=== PATIENT | female | born 1985 | race Caucasian/White ===

== ENCOUNTER 2016-03-23 01:08 | Emergency (ER) | payer OTHER ==
--- NOTE | 2016-03-23 01:13 | ED ---
General Adult HPI <Sanchez Maldonado - Last Filed: 03/23/16 09:49> - General Source: RN notes reviewed, old records reviewed <Sanchez Weaver - Last Filed: 03/24/16 04:03> - General Stated complaint: alcohol Time Seen by Provider: 03/23/16 01:11 - History of Present Illness Initial comments: This is a 22-year-old female to the ER for evaluation. Patient brought in for ER by EMS, patient's unreliable historian secondary to alcohol intoxication, in speaking with patient's fiance, patient's breathing brought in for evaluation of suicidal thoughts or homicidal thoughts. Patient is petition (Sanchez Weaver) - Related Data Home Medications Medication Instructions Recorded Confirmed ALPRAZolam [Xanax] 0.5 mg PO TID PRN 03/23/16 03/23/16 Ciprofloxacin HCl [Cipro] 500 mg PO Q12HR 03/23/16 03/23/16 Ergocalciferol [Vitamin D2] 50,000 unit PO QMONTH 03/23/16 03/23/16 Norgestimate-Ethinyl Estradiol 1 tab PO DAILY 03/23/16 03/23/16 [Sprintec 28 Day Tablet] Ofloxacin 0.3% Otic Soln [Floxin 6 drops LEFT EAR BID 03/23/16 03/23/16 0.3% Otic Soln] Allergies Allergy/AdvReac Type Severity Reaction Status Date / Time amoxicillin [Amoxicillin] Allergy Swelling Verified 03/23/16 01:58 Penicillins Allergy Swelling Verified 03/23/16 01:58 Review of Systems ROS Other: All systems not noted in ROS Statement are negative. <Sanchez Maldonado - Last Filed: 03/23/16 09:49> ROS Other: All systems not noted in ROS Statement are negative. <Sanchez Weaver - Last Filed: 03/24/16 04:03> ROS Statement: Those systems with pertinent positive or pertinent negative responses have been documented in the HPI. Past Medical History Additional Past Medical History / Comment(s): GESTATIONAL DIABETIS, hx alcohol abuse and pancreatitis History of Any Multi-Drug Resistant Organisms: None Reported Past Surgical History: No Surgical Hx Reported Past Psychological History: Anxiety, Depression Additional Psychological History / Comment(s): states hx of anx/depression. no meds. discussed pp depression/edinburgh scale. Smoking Status: Never smoker Past Alcohol Use History: None Reported Additional Past Alcohol Use History / Comment(s): sober since feb 2013- past hx of etoh abuse. smokes 1/2 ppd at this time. smoking cessation info given Past Drug Use History: None Reported <Sanchez Weaver - Last Filed: 03/24/16 04:03> General Exam General appearance: alert, appears intoxicated, anxious Head exam: Present: atraumatic, normocephalic, normal inspection Eye exam: Present: normal appearance, PERRL, EOMI. Absent: scleral icterus, conjunctival injection, periorbital swelling ENT exam: Present: normal exam, mucous membranes moist Neck exam: Present: normal inspection. Absent: tenderness, meningismus, lymphadenopathy Respiratory exam: Present: normal lung sounds bilaterally. Absent: respiratory distress, wheezes, rales, rhonchi, stridor Cardiovascular Exam: Present: regular rate, normal rhythm, normal heart sounds. Absent: systolic murmur, diastolic murmur, rubs, gallop, clicks GI/Abdominal exam: Present: soft, normal bowel sounds. Absent: distended, tenderness, guarding, rebound, rigid Extremities exam: Present: normal inspection, full ROM, normal capillary refill. Absent: tenderness, pedal edema, joint swelling, calf tenderness Back exam: Present: normal inspection Neurological exam: Present: alert, oriented X3, CN II-XII intact Psychiatric exam: Present: normal affect, normal mood Skin exam: Present: warm, dry, intact, normal color. Absent: rash <Sanchez Weaver - Last Filed: 03/24/16 04:03> Medical Decision Making <Sanchez Maldonado - Last Filed: 03/23/16 09:49> <Sanchez Weaver - Last Filed: 03/24/16 04:03> - Medical Decision Making 30 female seen either by psychiatry, positive alcohol, without alcohol is not homicidal or suicidal can be discharged home (Sanchez Weaver) Disposition Time of Disposition: 08:17 <Sanchez Maldonado - Last Filed: 03/23/16 09:49> <Sanchez Weaver - Last Filed: 03/24/16 04:03> Clinical Impression: Alcoholic intoxication Disposition: HOME SELF-CARE Condition: Good Instructions: Alcohol Intoxication (ED) Referrals: Aren Schmid MD [Primary Care Provider] - 1-2 days
[2016-03-23 01:31] VITALS: RESP 18; TEMP 99.1
[2016-03-23] MEDS ORDERED: ACETAMINOPHEN TAB 500 MG TAB PO STA (08:13)
[2016-03-23] MEDS ORDERED: IBUPROFEN 600 MG TAB PO STA (08:13)
[2016-03-23] MEDS ORDERED: AMOXICILLIN 500 MG CAP PO STA (08:14)
[2016-03-23] MEDS ORDERED: AZITHROMYCIN 500 MG TAB PO STA (08:25)
[2016-03-23 10:54] VITALS: BP 115/58; PULSE 99
[2016-03-24 19:38] LABS: Comprehensive Drug Screen Ur SeeBelow; Creatinine, Random Urine 22 mg/dL
== END 2016-03-23 10:52 | disposition home or self-care (01) ==
LOC: EC 01:08
DX: F10.129 Alcohol abuse with intoxication, unspecified (principal); F41.9 Anxiety disorder, unspecified; Y90.7 Blood alcohol level of 200-239 mg/100 ml; Z88.0 Allergy status to penicillin; Z79.3 Long term (current) use of hormonal contraceptives; Z79.899 Other long term (current) drug therapy
CPT/HCPCS: 99284; 82075; 80307; G0483; 80377

== ENCOUNTER → 2020-03-25 | Outpatient (CLI) | payer OTHER ==
--- NOTE | 2020-03-25 15:17 | US ---
EXAMINATION TYPE: US thyroid st tissue head/neck DATE OF EXAM: 03/25/2020 COMPARISON: NONE CLINICAL HISTORY: Swelling/Neck Mass R22.1. GLAND SIZE: Right Lobe: 5.1 x 1.6 x 1.7 cm Overall Parenchyma: mildly heterogenous Left Lobe: 4.5 x 1.4 x 1.6 cm Overall Parenchyma: mildly heterogeneous Isthmus Thickness: 0.5 cm NODULES RIGHT: # of nodules measured on right: 0 LEFT: # of nodules measured on left: 0 ISTHMUS: # of nodules measured in the isthmus: 0 Bilateral neck scanned, no evidence of lymphadenopathy. IMPRESSION: Normal thyroid ultrasound.
[2020-03-25 16:23] LABS: T4, Free (Free Thyroxine) 1.11 ng/dL (0.78-2.19)
== END | disposition home or self-care (01) ==
LOC: RADUSWWP 13:57
PROVIDERS: ATTEND Internal Medicine
DX: R22.1 Localized swelling, mass and lump, neck (principal); Z88.0 Allergy status to penicillin; F31.9 Bipolar disorder, unspecified; E06.9 Thyroiditis, unspecified
CPT/HCPCS: 76536; 84439; 84443; 84481; 86376

== ENCOUNTER → 2021-11-05 | Outpatient (CLI) | payer OTHER ==
[2021-11-05 23:23] LABS: T4, Free (Free Thyroxine) 1.32 ng/dL (0.800-1.800)
== END | disposition home or self-care (01) ==
LOC: LABWHC1 14:52
PROVIDERS: ATTEND Nurse Practitioner Family
DX: E03.9 Hypothyroidism, unspecified (principal)
CPT/HCPCS: 36415; 84439; 84443; 84481

== ENCOUNTER 2022-03-04 17:22 | Emergency (ER) | payer OTHER ==
[2022-03-04 17:54] LABS: Glucose,Whole Blood 169 mg/dL (70-110)
[2022-03-04] MEDS ORDERED: SODIUM CHLORIDE 0.9% 1,000 ML IV STA (19:45)
--- NOTE | 2022-03-04 19:50 | ED ---
General Adult HPI - General Chief complaint: Upper Respiratory Infection Stated complaint: flu symptoms Time Seen by Provider: 03/04/22 19:38 Source: patient, RN notes reviewed Mode of arrival: ambulatory Limitations: no limitations - History of Present Illness Initial comments: This is a pleasant 36-year-old female with history of hypothyroidism and ge stational diabetes. Patient currently 23 weeks . Patient states that she has had, some shortness of breath, body aches and fever over the past 3 days. Patient tested positive for COVID-19 in triage. Denying any productive cough. Denies any chest pain. No vaginal bleeding or vaginal leakage. No abdominal pain. No pelvic pain. No headache, no fever or chills, no changes in vision or hearing, no sore throat or difficulty with speech, no neck pain, no chest pain or shortness of breath, no abdominal pain, no nausea or vomiting, no changes in urination or bowel movements, no numbness or tingling, no extremity pain, no skin rashes or lesions. Past medical, surgical, social, and family history reviewed. No history of blood clots or pulmonary embolism. Patient A0. - Related Data Home Medications Medication Instructions Recorded Confirmed ALPRAZolam [Xanax] 0.5 mg PO TID PRN 03/23/16 03/23/16 Ciprofloxacin HCl [Cipro] 500 mg PO Q12HR 03/23/16 03/23/16 Ergocalciferol [Vitamin D2] 50,000 unit PO QMONTH 03/23/16 03/23/16 Ofloxacin 0.3% Otic Soln [Floxin 6 drops LEFT EAR BID 03/23/16 03/23/16 0.3% Otic Soln] norgestimate-ethinyl estradioL 1 tab PO DAILY 03/23/16 03/23/16 [Sprintec 28 Day Tablet] Allergies Allergy/AdvReac Type Severity Reaction Status Date / Time amoxicillin [Amoxicillin] Allergy Swelling Verified 03/04/22 17:52 Penicillins Allergy Swelling Verified 03/04/22 17:52 Review of Systems ROS Statement: Those systems with pertinent positive or pertinent negative responses have been documented in the HPI. ROS Other: All systems not noted in ROS Statement are negative. Past Medical History Past Medical History: No Reported History Additional Past Medical History / Comment(s): GESTATIONAL DIABETIS, hx alcohol abuse and pancreatitis History of Any Multi-Drug Resistant Organisms: None Reported Past Surgical History: No Surgical Hx Reported Past Psychological History: Anxiety, Depression Smoking Status: Never smoker Past Alcohol Use History: None Reported Past Drug Use History: None Reported General Exam - General Exam Comments Initial Comments: Patient noted to be tachycardic. Appears to be mildly ill but not toxic. Adequate peripheral perfusion. No mottling. Limitations: no limitations General appearance: alert, in no apparent distress Head exam: Present: atraumatic, normocephalic, normal inspection Eye exam: Present: normal appearance, PERRL, EOMI. Absent: scleral icterus, conjunctival injection, periorbital swelling ENT exam: Present: normal exam, normal oropharynx, mucous membranes dry, mucous membranes moist, normal external ear exam Neck exam: Present: normal inspection, full ROM. Absent: tenderness, meningismus, lymphadenopathy Respiratory exam: Present: normal lung sounds bilaterally. Absent: respiratory distress, wheezes, rales, rhonchi, stridor Cardiovascular Exam: Present: normal rhythm, tachycardia, normal heart sounds. Absent: systolic murmur, diastolic murmur, rubs, gallop, clicks GI/Abdominal exam: Present: soft, normal bowel sounds. Absent: distended, tenderness, guarding, rebound, rigid Extremities exam: Present: normal inspection, full ROM, normal capillary refill. Absent: tenderness, pedal edema, joint swelling, calf tenderness Back exam: Present: normal inspection Neurological exam: Present: alert, oriented X3, CN II-XII intact Psychiatric exam: Present: normal affect, normal mood Skin exam: Present: warm, dry, intact, normal color. Absent: rash Course Vital Signs 03/04/22 03/04/22 03/04/22 17:47 19:43 21:57 Temperature 98.7 F Pulse Rate 131 H 116 H 123 H Respiratory 18 18 20 Rate Blood Pressure 109/68 O2 Sat by Pulse 98 100 99 Oximetry 03/04/22 22:31 Temperature 98.9 F Pulse Rate Respiratory Rate Blood Pressure O2 Sat by Pulse Oximetry - Reevaluation(s) Reevaluation #1: 03/04/22 20:47 Patient is d-dimer +1.51. Discussed risks versus benefits of computed tomography scan with the patient. Discussed possibility of pulmonary embolism. Patient consents to computed tomography scan through shared decision-making. Remainder of the laboratory work so far is essentially nondiagnostic with mild anemia, CO2 of 20, sodium 134, negative troponin. Reevaluation #2: 03/04/22 22:42 Medical record is reviewed Symptoms are improved here in the emergency department Patient is informed of results and questions answered Patient in no distress Computed tomography scan shows no evidence of pulmonary embolism. EKG Findings - EKG Comments: EKG Findings:: EKG independently interpreted by me at 2012 revealed sinus tachycardia with a rate of 119. Normal axis, no acute pathology, no ST elevation or depression. Normal intervals. Medical Decision Making - Medical Decision Making Differential diagnosis viral syndrome, patient already tested positive for COVID-19 in triage. Unlikely secondary pneumoniapatient has no adventitious lung sounds. Pulmonary embolism possible as the patient is and tested positive for COVID-19. Patient also tachycardic despite having no fever. Patient took 1000 mg of acetaminophen 3 hours prior to my evaluation. Gen. cardiopulmonary evaluation to include EKG, troponin, d-dimer. ordered the monoclonal antibody and heart tones. Computed tomography scan independently interpreted by me reveals no evidence of acute process. Specifically no evidence of pulmonary embolism. Reviewed radiology interpretation. All findings discussed with the patient. Treatment plan discussed. The monoclonal antibody was not available as of February 17. We'll have the patient treat conservatively for COVID-19. Quarantine measures discussed. Masking discussed. Patient can use Tylenol every 4-6 hours as directed on the [id number] bottle for symptomatically and fever control. Return of all parameters discussed in detail. Patient was told to return to the ER for any signs or symptoms worsen. Told to return immediately if any other problems arise. All questions answered. Treatment plan discussed. Patient in agreement Every effort has been made to ensure accuracy of this dictation. However, due to the limitations of electronic medical records and dictation devices, errors in charting still occur. The case was discussed in detail with ED attending physician. Presentation, findings, treatment plan discussed in detail. Adriániso Dr. Phillips - Lab Data Result diagrams: 03/04/22 20:01 03/04/22 20:01 Lab Results 03/04/22 03/04/22 03/04/22 Range/Units 17:52 17:54 20:01 WBC 8.5 (3.8-10.6) k/uL RBC 3.28 L (3.80-5.40) m/uL Hgb 11.0 L (11.4-16.0) gm/dL Hct 30.7 L (34.0-46.0) % MCV 93.6 (80.0-100.0) fL MCH 33.5 (25.0-35.0) pg MCHC 35.7 (31.0-37.0) g/dL RDW 12.4 (11.5-15.5) % Plt Count 286 (150-450) k/uL MPV 8.2 Neutrophils % 89 % Lymphocytes % 4 % Monocytes % 4 % Eosinophils % 1 % Basophils % 0 % Neutrophils # 7.6 (1.3-7.7) k/uL Lymphocytes # 0.4 L (1.0-4.8) k/uL Monocytes # 0.4 (0-1.0) k/uL Eosinophils # 0.1 (0-0.7) k/uL Basophils # 0.0 (0-0.2) k/uL D-Dimer (<0.60) mg/L FEU Sodium (137-145) mmol/L Potassium (3.5-5.1) mmol/L Chloride (98-107) mmol/L Carbon Dioxide (22-30) mmol/L Anion Gap mmol/L BUN (7-17) mg/dL Creatinine (0.52-1.04) mg/dL Est GFR (CKD-EPI)AfAm (>60 ml/min/1.73 sqM) Est GFR (CKD-EPI)NonAf (>60 ml/min/1.73 sqM) Glucose (74-99) mg/dL POC Glucose (mg/dL) 169 H (70-110) mg/dL POC Glu Cost Estimator ID Willing, Winifred Plasma Lactic Acid Sukhwinder (0.7-2.0) mmol/L Calcium (8.4-10.2) mg/dL Magnesium (1.6-2.3) mg/dL Total Bilirubin (0.2-1.3) mg/dL AST (14-36) U/L ALT (4-34) U/L Alkaline Phosphatase (38-126) U/L Troponin I (0.000-0.034) ng/mL Total Protein (6.3-8.2) g/dL Albumin (3.5-5.0) g/dL Influenza Type A (PCR) Not Detected (Not Detectd) Influenza Type B (PCR) Not Detected (Not Detectd) RSV (PCR) Not Detected (Not Detectd) SARS-CoV-2 (PCR) Detected A (Not Detectd) 03/04/22 03/04/22 03/04/22 Range/Units 20:01 20:01 20:01 WBC (3.8-10.6) k/uL RBC (3.80-5.40) m/uL Hgb (11.4-16.0) gm/dL Hct (34.0-46.0) % MCV (80.0-100.0) fL MCH (25.0-35.0) pg MCHC (31.0-37.0) g/dL RDW (11.5-15.5) % Plt Count (150-450) k/uL MPV Neutrophils % % Lymphocytes % % Monocytes % % Eosinophils % % Basophils % % Neutrophils # (1.3-7.7) k/uL Lymphocytes # (1.0-4.8) k/uL Monocytes # (0-1.0) k/uL Eosinophils # (0-0.7) k/uL Basophils # (0-0.2) k/uL D-Dimer 1.51 H (<0.60) mg/L FEU Sodium 134 L (137-145) mmol/L Potassium 4.0 (3.5-5.1) mmol/L Chloride 106 (98-107) mmol/L Carbon Dioxide 20 L (22-30) mmol/L Anion Gap 8 mmol/L BUN 5 L (7-17) mg/dL Creatinine 0.36 L (0.52-1.04) mg/dL Est GFR (CKD-EPI)AfAm >90 (>60 ml/min/1.73 sqM) Est GFR (CKD-EPI)NonAf >90 (>60 ml/min/1.73 sqM) Glucose 93 (74-99) mg/dL POC Glucose (mg/dL) (70-110) mg/dL POC Glu Cost Estimator ID Plasma Lactic Acid Sukhwinder 1.0 (0.7-2.0) mmol/L Calcium 9.6 (8.4-10.2) mg/dL Magnesium 1.8 (1.6-2.3) mg/dL Total Bilirubin 0.5 (0.2-1.3) mg/dL AST 33 (14-36) U/L ALT 21 (4-34) U/L Alkaline Phosphatase 73 (38-126) U/L Troponin I (0.000-0.034) ng/mL Total Protein 7.0 (6.3-8.2) g/dL Albumin 4.1 (3.5-5.0) g/dL Influenza Type A (PCR) (Not Detectd) Influenza Type B (PCR) (Not Detectd) RSV (PCR) (Not Detectd) SARS-CoV-2 (PCR) (Not Detectd) 03/04/22 Range/Units 20:01 WBC (3.8-10.6) k/uL RBC (3.80-5.40) m/uL Hgb (11.4-16.0) gm/dL Hct (34.0-46.0) % MCV (80.0-100.0) fL MCH (25.0-35.0) pg MCHC (31.0-37.0) g/dL RDW (11.5-15.5) % Plt Count (150-450) k/uL MPV Neutrophils % % Lymphocytes % % Monocytes % % Eosinophils % % Basophils % % Neutrophils # (1.3-7.7) k/uL Lymphocytes # (1.0-4.8) k/uL Monocytes # (0-1.0) k/uL Eosinophils # (0-0.7) k/uL Basophils # (0-0.2) k/uL D-Dimer (<0.60) mg/L FEU Sodium (137-145) mmol/L Potassium (3.5-5.1) mmol/L Chloride (98-107) mmol/L Carbon Dioxide (22-30) mmol/L Anion Gap mmol/L BUN (7-17) mg/dL Creatinine (0.52-1.04) mg/dL Est GFR (CKD-EPI)AfAm (>60 ml/min/1.73 sqM) Est GFR (CKD-EPI)NonAf (>60 ml/min/1.73 sqM) Glucose (74-99) mg/dL POC Glucose (mg/dL) (70-110) mg/dL POC Glu Cost Estimator ID Plasma Lactic Acid Sukhwinder (0.7-2.0) mmol/L Calcium (8.4-10.2) mg/dL Magnesium (1.6-2.3) mg/dL Total Bilirubin (0.2-1.3) mg/dL AST (14-36) U/L ALT (4-34) U/L Alkaline Phosphatase (38-126) U/L Troponin I <0.012 (0.000-0.034) ng/mL Total Protein (6.3-8.2) g/dL Albumin (3.5-5.0) g/dL Influenza Type A (PCR) (Not Detectd) Influenza Type B (PCR) (Not Detectd) RSV (PCR) (Not Detectd) SARS-CoV-2 (PCR) (Not Detectd) - Radiology Data Radiology results: report reviewed, image reviewed Disposition Clinical Impression: COVID-19 Disposition: HOME SELF-CARE Condition: Good Instructions (If sedation given, give patient instructions): COVID-19 (Coronavirus Disease 2019) (ED) Additional Instructions: SELF QUARANTINE DISCHARGE: As you are at risk for symptoms due to coronavirus, please stay home and stay away from others as much as possible. Please maintain social distance of 6 feet if possible. You should not return to work until at least 3 days (72 hours) have passed since recovery of symptoms. This defined as resolution of fever without the use of fever reducing medicines and improvement in respiratory symptoms (e.g,, cough, shortness of breath) Isolation can end at least 5 days after symptom onset and after fever ends for 24 hours (without the use of fever-reducing medication) and symptoms are improving, if these people can continue to properly wear a well-fitted mask around others for 5 more days after the 5-day isolation period. If you're still having symptoms at the end of 5 day period, isolate for an additional 5 days. More information about what to do if you are sick can be found on the CDC website at https://www.cdc.gov/coronavirus/2019-ncov/if-y ou-are-sick/wookm-tqbi-bgue.html Expect the symptoms to last for 7-14 days from onset. Use acetaminophen (Tylenol) as needed for discomfort. You can take a maximum of 1 gram every 6 hours for discomfort, with your total dose in 24 hours not exceeding 4 grams. Be sure to maintain hydration. Drink continuous water and/or items high in vitamin C, such as orange juice and/or lemonade. For a cough you may take Mucinex or Robitussin. Also consider the use of Vicks Vapor Rub or your chest when you sleep. Use a humidifier that is cleaned frequently, in the bedroom at night. For Nausea /Vomiting/Diarrhea associated with your Illness: o Small frequent sips of room temperature liquids. o Diet: [place] Foods - If you are still experiencing discomfort and/or nausea please slowly advancing your diet using the BRAT Diet = bananas, rice, apples/apple sauce, toast. o With diarrhea avoid any dairy for 48 hours after symptoms resolved. o Continue with activity as tolerated. If your symptoms do get worse and you believe that the upper respiratory infection has developed into something else, such as pneumonia or severe dehydration, please return to the emergency department or follow-up with your primary care. But expect to be symptomatic for the days as indicated above Follow-up with your regular physician as directed. Return to the ER immediately if any symptoms worsen, new symptoms arise, or any other problems develop. Also call your color finisher tomorrow just to notify them of your current COVID- 19 infection. Is patient prescribed a controlled substance at d/c from ED?: No Referrals: Aren Schmid MD [Primary Care Provider] - 03/11/22 Time of Disposition: 22:44
[2022-03-04 20:11] LABS: Basophils % (A) 0 %; Eosinophils # (A) 0.1 k/uL (0-0.7); Eosinophils % (A) 1 %; HCT 30.7 % (34.0-46.0); Lymphocytes # (A) 0.4 k/uL (1.0-4.8); Lymphocytes % (A) 4 %; MCH 33.5 pg (25.0-35.0); MCHC 35.7 g/dL (31.0-37.0); MCV 93.6 fL (80.0-100.0); Mean Platelet Volume 8.2; Monocytes # (A) 0.4 k/uL (0-1.0); Monocytes % (A) 4 %; Neutrophils # (A) 7.6 k/uL (1.3-7.7); Neutrophils % (A) 89 %; Platelet Count 286 k/uL (150-450); RBC 3.28 m/uL (3.80-5.40); RDW 12.4 % (11.5-15.5); WBC 8.5 k/uL (3.8-10.6)
[2022-03-04 20:26] LABS: ALT 21 U/L (4-34); African American GFR (CKD) >90 (>60 ml/min/1.73 sqM); Albumin 4.1 g/dL (3.5-5.0); Anion Gap 8 mmol/L; Blood Urea Nitrogen 5 mg/dL (7-17); Calcium 9.6 mg/dL (8.4-10.2); Carbon Dioxide 20 mmol/L (22-30); Chloride 106 mmol/L (98-107); Glucose 93 mg/dL (74-99); Non-African American GFR(CKD) >90 (>60 ml/min/1.73 sqM); Sodium 134 mmol/L (137-145); Total Bilirubin 0.5 mg/dL (0.2-1.3)
[2022-03-04 20:28] LABS: AST 33 U/L (14-36); Alkaline Phosphatase 73 U/L (38-126); Magnesium 1.8 mg/dL (1.6-2.3)
[2022-03-04] MEDS ORDERED: diphenhydrAMINE 50 MG/ML 1 ML VIAL IVP STA (20:44)
[2022-03-04] MEDS ORDERED: METOCLOPRAMIDE 5 MG/ML 2 ML VIAL IVP STA (20:44)
[2022-03-04] MEDS ORDERED: ACETAMINOPHEN TAB 500 MG TAB PO STA (22:16)
--- NOTE | 2022-03-04 22:22 | CT ---
EXAMINATION TYPE: CT chest angio for PE DATE OF EXAM: 03/04/2022 COMPARISON: None HISTORY: Tachycardia, dyspnea, Covid +. Pt [address] DLP: 289.7 mGycm Automated exposure control for dose reduction was used. CONTRAST: Performed with IV Contrast, patient injected with 100 mL of Isovue 370. Images obtained from the thoracic inlet to the diaphragm with the IV contrast. There are Three-D post processed images. There is no mediastinal adenopathy. Thoracic aorta is intact and no aneurysm or dissection. There are no hilar masses. Lungs are clear of consolidation. There is normal contrast opacification of the pulmonary arteries. No filling defect. There is no adrenal mass. Kidneys show normal size. Upper abdominal soft tissues are intact. The thoracic spine is intact. No compression fracture. Sternum is intact. IMPRESSION: Negative exam. No evidence of pulmonary embolism. No suspicious pulmonary mass.
[2022-03-04 22:31] VITALS: TEMP 98.9
[2022-03-04 22:58] VITALS: BP 93/57; PULSE 116; RESP 18
== END 2022-03-04 22:57 | disposition home or self-care (01) ==
LOC: EC 17:22
DX: O99.512 Diseases of the respiratory system complicating pregnancy, second trimester (principal); O99.342 Other mental disorders complicating pregnancy, second trimester; O99.712 Diseases of the skin and subcutaneous tissue complicating pregnancy, second trimester; U07.1 COVID-19; F41.9 Anxiety disorder, unspecified; F32.A Depression, unspecified; Z88.0 Allergy status to penicillin; Z3A.23 23 weeks gestation of pregnancy
CPT/HCPCS: 99284; 96374; 96375; 96361 ×2; 36415; 93005; 85379; 80053; 83605; 83735; 84484; 85025; 87636; 71275; J1200; J2765; Q9967

== ENCOUNTER → 2022-03-30 | Outpatient (CLI) | payer OTHER | END | disposition home or self-care (01) | LOC: LABWHC1 10:10 | PROVIDERS: ATTEND Obstetrics & Gynecology | DX: Z36.9 Encounter for antenatal screening, unspecified (principal) | CPT/HCPCS: 36415; 82950 ==

== ENCOUNTER 2022-04-08 18:53 | Outpatient (CLI) | payer OTHER ==
[2022-04-08 19:39] VITALS: BP 125/78; PULSE 96; RESP 17; TEMP 96.6
--- NOTE | 2022-04-20 12:17 | P.MSEPDOC ---
Presenting Problems - Arrival Data Date of Arrival on Unit: 04/08/22 Time of Arrival on Unit: 18:53 Mode of Transport: Wheelchair - Complaint OB-Reason for Admission/Chief Complaint: Decreased Movement Medical History - Information : 2 Para: 1 Term: 1 : 0 Abortions: Spontaneous or Elective: 0 Number of Living Children: 1 - Gestational Age Gestational Age by ALVARO (wks/days): 27 Weeks and 6 Days - History Complications: GDM Review of Systems - Review of Systems Constitutional: No problems Breast: No problems ENT: No problems Cardiovascular: No problems Respiratory: No problems Gastrointestinal: No problems Genitourinary: No problems Musculoskeletal: No problems Neurological: No problems Skin: No problems Vital Signs - Temperature Temperature: 96.6 F Temperature Source: Temporal Artery Scan - Pulse Right Brachial Pulse Rate: 96 Pulse Assessment Method: Pulse Oximetry - Respirations Respiratory Rate: 17 Oxygen Delivery Method: Room Air O2 Sat by Pulse Oximetry: 99 - Blood Pressure Right Arm Blood Pressure: 125/78 Blood Pressure Mean: 93 Blood Pressure Source: Automatic Cuff Medical Screen Scoring - Assessment - Baby A Baseline FHR: 130 Heart Rate - NICHD Category: Category I (Normal) NST: Reactive Physician Notification - Physician Notified Physician Notified Date: 04/08/22 Physician Notified Time: 19:15 Physician: Gabby Allen New Order Received: Yes - Notification Comment Comment: Dr. Allen given report on pt. Pt c/o of decreased movement. FHT strip reviewed by Dr. Lugo 1 FHTs noted. Pt denies contractions. VS WNL. movement noted per pt and per RN. Pt has apt with Dr. Gonzalez on 04/13. Orders received to d/c pt to home. Maternal Triage Index - Urgent/Priority 2 Urgent Priority 2: Yes Provider Notified: Gabby Allen Provider Notified Time: 19:15 Criteria Met for Priority 2: Pt c/o of decreased movement. Disposition - Disposition OB Disposition: Discharge to home Discharge Date: 04/08/22 Discharge Time: 19:22 I agree with the RN Medical Screening Exam: Yes Case reviewed; plan agreed upon as documented in EMR&OBIX.: Yes Diagnosis: decreased movemnet
== END 2022-04-08 19:22 | disposition home or self-care (01) ==
LOC: FBPOP 18:53
PROVIDERS: ATTEND Obstetrics & Gynecology
DX: O36.8131 Decreased fetal movements, third trimester, fetus 1 (principal); O24.419 Gestational diabetes mellitus in pregnancy, unspecified control; Z3A.27 27 weeks gestation of pregnancy; Z88.0 Allergy status to penicillin
CPT/HCPCS: 99213

== ENCOUNTER → 2022-06-22 | Outpatient (CLI) | payer OTHER ==
[2022-06-22 23:04] VITALS: BP 135/77; PULSE 95; RESP 16; TEMP 97.7
--- NOTE | 2022-07-08 12:26 | P.MSEPDOC ---
Presenting Problems - Arrival Data Date of Arrival on Unit: 06/22/22 Time of Arrival on Unit: 21:29 Mode of Transport: EMS - Complaint OB-Reason for Admission/Chief Complaint: Possible Onset of Labor Comment: patient arrives to triage states contractions are 5 minutes apart Medical History - Information : 2 Para: 1 Term: 1 : 0 Abortions: Spontaneous or Elective: 0 Number of Living Children: 1 - Gestational Age Gestational Age by ALVARO (wks/days): 38 Weeks and 4 Days - History Complications: GDM Review of Systems - Review of Systems Constitutional: No problems Breast: No problems ENT: No problems Cardiovascular: No problems Respiratory: No problems Gastrointestinal: No problems Genitourinary: No problems Musculoskeletal: No problems Neurological: No problems Skin: No problems Vital Signs - Temperature Temperature: 97.7 F Temperature Source: Oral - Pulse Right Brachial Pulse Rate: 95 Pulse Assessment Method: Automatic Cuff - Respirations Respiratory Rate: 16 Oxygen Delivery Method: Room Air O2 Sat by Pulse Oximetry: 97 - Blood Pressure Right Arm Blood Pressure: 135/77 Blood Pressure Mean: 96 Blood Pressure Source: Automatic Cuff Medical Screen Scoring - Cervical Exam Dilation (cm): 1 Membranes: Intact - Uterine Contractions Frequency From (mins): 3 Frequency To (mins): 15 Duration From (seconds): 40 Duration To (seconds): 60 Intensity: Moderate Resting: Soft to palpation - Assessment - Baby A Baseline FHR: 120 Heart Rate - NICHD Category: Category I (Normal) NST: Reactive Physician Notification - Physician Notified Physician Notified Date: 06/22/22 Physician Notified Time: 22:37 Physician: Daphnie Figueroa New Order Received: Yes (discahrge to home) - Notification Comment Comment: Dr. Figueroa called with report on patient that presents to [facility] via EMS. for contractions. Patient viviane 3-15minutes apart and states it feels like mild. cramping. Cervical exam 1/thick/high and unchanged after 1 hour. Category 1 heart tones. with reactive NST. Patient may be discharged home and follow up with Dr. Gonzalez Maternal Triage Index - Maternal Triage Index Presenting for scheduled procedure w/no complaint: No - Stat/Priority 1 Stat Priority 1: No - Urgent/Priority 2 Urgent Priority 2: No - Prompt/Priority 3 Prompt Priority 3: Yes Criteria Met for Priority 3: contractions Disposition - Disposition OB Disposition: Discharge to home Discharge Date: 06/22/22 Discharge Time: 22:41 I agree with the RN Medical Screening Exam: Yes Physician's MSE Comment: I have neither seen nor examined the patient. Case reviewed; plan agreed upon as documented in EMR&OBIX.: Yes Diagnosis: RELATED CONDITIONS, UNSPECIFIED, THIRD TRIMESTER
== END ==
LOC: FBPOP 21:29
PROVIDERS: ATTEND Obstetrics & Gynecology
DX: O26.893 Other specified pregnancy related conditions, third trimester (principal); Z3A.38 38 weeks gestation of pregnancy; O24.419 Gestational diabetes mellitus in pregnancy, unspecified control; Z88.0 Allergy status to penicillin
CPT/HCPCS: 59025; G0463; 99213

== ENCOUNTER 2022-06-30 06:29 | Inpatient (IN) | payer OTHER ==
[2022-06-30] MEDS ORDERED: TERBUTALINE 1 MG/ML VIAL SQ PRN (06:45)
[2022-06-30] MEDS ORDERED: METHYLERGONOVINE 0.2 MG/ML 1 ML AMP IM PRN (06:45)
[2022-06-30] MEDS ORDERED: CARBOPROST TROMETHAMINE 250 MCG/ML 1 ML AMP IM PRN (06:45)
[2022-06-30] MEDS ORDERED: LIDOCAINE 0.5% (PF) 5 MG/ML (50 ML SDV) SQ PRN (06:45)
[2022-06-30] MEDS ORDERED: OXYTOCIN 10 UNIT/ML 1 ML VIAL IM PRN (06:45)
[2022-06-30] MEDS ORDERED: miSOPROStoL 200 MCG TAB PO PRN (06:45)
[2022-06-30] MEDS ORDERED: TRANEXAMIC ACID IN NACL,ISO-OS 1,000 MG in EMPTY BAG 1 BAG IV PRN (06:45)
[2022-06-30 07:03] LABS: Glucose,Whole Blood 115 mg/dL (70-110)
[2022-06-30 07:13] LABS: Basophils # (A) 0.1 k/uL (0-0.2); Basophils % (A) 0 %; Eosinophils # (A) 0.2 k/uL (0-0.7); Eosinophils % (A) 2 %; HGB 10.7 gm/dL (11.4-16.0); Lymphocytes # (A) 2.5 k/uL (1.0-4.8); Lymphocytes % (A) 21 %; MCH 32.8 pg (25.0-35.0); MCHC 34.5 g/dL (31.0-37.0); MCV 95.1 fL (80.0-100.0); Mean Platelet Volume 7.7; Monocytes # (A) 0.6 k/uL (0-1.0); Monocytes % (A) 5 %; Neutrophils # (A) 8.2 k/uL (1.3-7.7); Neutrophils % (A) 68 %; Platelet Count 321 k/uL (150-450); RBC 3.26 m/uL (3.80-5.40)
[2022-06-30] MEDS: LACTATED RINGERS 1,000 ML IV SCH ×3 (08:00→12:23)
[2022-06-30] MEDS ORDERED: OXYTOCIN 30 UNITS/500 ML NS 30 UNIT in SALINE 1 500ML.BAG IV SCH ×2 (08:15→19:15)
--- NOTE | 2022-06-30 08:48 | P.HPOB ---
History of Present Illness H&P Date: 06/30/22 Chief Complaint: 39-5/7 weeks, induction The patient is a 36-year-old 2 para 101 admitted at 39-5/7 weeks as established by 12 week ultrasound. She is admitted for induction of labor. Her has been relatively uncomplicated though she is known to have a fetus with a right clubfoot. She additionally has gestational diabetes which has required insulin. Blood sugars have been relatively well maintained during the . testing has been reassuring throughout. On labor and delivery, all signs reassuring with a category 1 heart rate tracing. Group B strep status is negative Obstetrical history: 2 para 1001 with 1 term vaginal delivery without complications. Current statistics are listed in history present il lness. EDC of 07/02/2022 was established by a 12 week ultrasound. Laboratory workup demonstrates a blood type of B+ with a negative antibody screen. The remainder of the laboratory workup was within normal limits. Early Glucola was normal but was followed up with a significantly irregular second trimester Glucola making the diagnosis of gestational diabetes. Group B strep status is negative. Gynecologic history: Unremarkable with no history of any infections to include STDs. Review of Systems Review of systems is confined to history of present illness. Past Medical History Past Medical History: No Reported History Additional Past Medical History / Comment(s): GESTATIONAL DIABETIS, hx alcohol abuse and pancreatitis History of Any Multi-Drug Resistant Organisms: None Reported Past Surgical History: No Surgical Hx Reported Past Psychological History: Anxiety, Depression Additional Psychological History / Comment(s): states hx of anx/depression. no meds. discussed pp depression/edinburgh scale. Smoking Status: Former smoker Past Alcohol Use History: None Reported Additional Past Alcohol Use History / Comment(s): sober since feb 2013- past hx of etoh abuse. smokes 1/2 ppd at this time. smoking cessation info given Past Drug Use History: None Reported Medications and Allergies Home Medications Medication Instructions Recorded Confirmed Type Aspirin [Vazalore] 1 tab PO ONCE 04/08/22 06/30/22 History Levothyroxine Sodium 1 tab PO ONCE 04/08/22 06/30/22 History Vit No.179/Iron/Folic 1 tab PO ONCE 04/08/22 06/30/22 History [ Tablet] Insulin Aspart [NovoLOG Flexpen] 15 units SQ BID 06/22/22 06/30/22 History Insulin Glargine,Hum.rec.anlog 24 units SQ BID 06/22/22 06/30/22 History [Lantus Solostar Pen] Allergies Allergy/AdvReac Type Severity Reaction Status Date / Time amoxicillin [Amoxicillin] Allergy Swelling Verified 06/30/22 06:44 Penicillins Allergy Anaphylaxis Verified 06/30/22 06:44 Exam Vital Signs Temp Pulse Resp BP Pulse Ox 06/30/22 06:43 96.1 F L 109 H 16 113/80 100 Intake and Output 06/29/22 06/30/22 06/30/22 22:59 06:59 14:59 Other: Weight 80.286 kg In general, this is a well-developed, well-nourished white female in no acute distress. Her heart has a regular rhythm and rate without murmur. Her lungs clear to auscultation bilaterally in all segura. Her abdomen is gravid, nondistended, has normal active bowel sounds, soft, nontender, and without any palpable masses aside from the uterine fundus. Her extremities are without any cyanosis, clubbing, or edema and are nontender to palpation bilaterally. Digital cervical examination on straights her cervix to be a very tight 1 cm dilated, 50% effaced, the vertex in presentation at -2 station. Artificial rupture of membranes is unable to be carried out at this time. Results Result Diagrams: 06/30/22 06:40 Abnormal Lab Results - Last 24 Hours (Table) 06/30/22 06/30/22 Range/Units 06:40 07:01 WBC 12.0 H (3.8-10.6) k/uL RBC 3.26 L (3.80-5.40) m/uL Hgb 10.7 L (11.4-16.0) gm/dL Hct 31.0 L (34.0-46.0) % Neutrophils # 8.2 H (1.3-7.7) k/uL POC Glucose (mg/dL) 115 H (70-110) mg/dL Assessment and Plan (1) Term Current Visit: Yes Status: Acute Code(s): Z34.90 - ENCNTR FOR SUPRVSN OF NORMAL , UNSP, UNSP TRIMESTER SNOMED Code(s): 31162623 (2) Gestational diabetes Current Visit: No Status: Acute Code(s): O24.419 - GESTATIONAL DIABETES MELLITUS IN , UNSP CONTROL SNOMED Code(s): 49886976 Plan: The patient is admitted for induction of labor. Pitocin augmentation has been started. She will have artificial rupture of membranes carried out at the earliest possible convenience moment. She will have close maternal and surveillance and expectant management will be practiced. She is a good candidate for either IV, epidural, or nitrous analgesia, whichever she may choose.
[2022-06-30 09:26] LABS: Glucose,Whole Blood 125 mg/dL (70-110)
[2022-06-30 11:38] LABS: Glucose,Whole Blood 121 mg/dL (70-110)
[2022-06-30] MEDS ORDERED: SODIUM CHLORIDE 0.9% 100 ML BAG ONE (12:04)
[2022-06-30] MEDS ORDERED: ROPIVACAINE 5 MG/ML 20 ML AMPULE ONE (12:04)
[2022-06-30] MEDS ORDERED: fentaNYL (PF) 50 MCG/ML 5 ML AMP ONE (12:04)
[2022-06-30 13:25] LABS: Glucose,Whole Blood 99 mg/dL (70-110)
[2022-06-30 15:42] LABS: Glucose,Whole Blood 76 mg/dL (70-110)
[2022-06-30 17:22] LABS: Glucose,Whole Blood 73 mg/dL (70-110)
[2022-06-30] MEDS ORDERED: diphenhydrAMINE 25 MG CAP PO PRN (19:05)
[2022-06-30] MEDS ORDERED: HYDROCORTISONE 2.5% RECTAL CREAM 30 GM TUBE RECTAL PRN (19:05)
[2022-06-30] MEDS ORDERED: ACETAMINOPHEN TAB 325 MG TAB PO PRN (19:05)
[2022-06-30] MEDS ORDERED: ZOLPIDEM 5 MG TAB PO PRN (19:05)
[2022-06-30] MEDS ORDERED: LANOLIN CREAM 5 GM TUBE TOPICAL PRN (19:05)
[2022-06-30] MEDS ORDERED: diphenhydrAMINE 50 MG/ML 1 ML VIAL IVP PRN ×2 (19:05)
[2022-06-30] MEDS ORDERED: SIMETHICONE 80 MG CHEWABLE PO PRN (19:05)
[2022-06-30] MEDS ORDERED: HYDROcodone/APAP 5-325MG 1 EACH TAB PO PRN (19:05)
[2022-06-30] MEDS ORDERED: BENZOCAINE/MENTHOL SPRAY 1 GM/SPRAY AEROSOL TOPICAL PRN (19:05)
[2022-06-30] MEDS ORDERED: diphenhydrAMINE 50 MG CAP PO PRN (19:05)
--- NOTE | 2022-06-30 19:11 | P.PROBDLV ---
Vaginal Delivery Note - . Vaginal Delivery Note: The patient is a 36-year-old 2 para 1001 admitted at 39-5/7 weeks by good dating parameters perches admitted for elective induction of labor with all signs reassuring. Her was complicated by gestational diabetes which did ultimately become insulin-dependent was otherwise well controlled. testing was reassuring throughout. On labor and delivery, all signs reassuring with a category 1 heart rate tracing. She had Pitocin augmentation started and approximately 2 hours later, had artificial rupture of membranes demonstrating clear fluid. She made progress through the latent phase and had an epidural catheter placed for analgesia. She then made steady progress through the day ultimately progressing to complete. She pushed over the course of approximately 20 minutes to a normal spontaneous vaginal delivery of a viable 6 lbs. 13 oz. baby boy with Apgars of 9 at 1 minute and 9 at 5 minutes delivered in the direct occiput anterior position. The placenta was delivered spontaneously, intact, and grossly normal with a grossly normal, centrally inserted three-vessel cord. There was a large condylomatous growth emanating from the perineal body which had a fairly narrow stalk though it was approximately 1/2 cm in length. Per the patient's request, it was infused at its base with lidocaine, excised, and sent to pathology for diagnoses. A small first-degree midline perineal laceration was noted and was repaired in standard fashion using 3-0 chromic catgut with the base of the excisional biopsy incorporated into the repair. Estimated blood loss for the entire case was approximate 150 mL. There were no complications. All sponge, instrument, and needle counts were correct. Both mother and are resting comfortably in recovery.
[2022-06-30] MEDS: IBUPROFEN 600 MG TAB PO PRN (19:41)
[2022-06-30] MEDS: SENNOSIDES-DOCUSATE SODIUM 1 EACH TAB PO SCH (19:42)
[2022-06-30] MEDS: HYDROcodone/APAP 7.5-325MG 1 EACH TAB PO PRN (21:05)
[2022-07-01] MEDS: IBUPROFEN 600 MG TAB PO PRN (02:10)
[2022-07-01] MEDS: HYDROcodone/APAP 7.5-325MG 1 EACH TAB PO PRN (03:51)
[2022-07-01 05:08] VITALS: RESP 16
--- NOTE | 2022-07-01 09:05 | P.DS ---
Providers Date of admission: 06/30/22 06:29 Expected date of discharge: 07/01/22 Attending physician: Faustino Gonzalez Primary care physician: Stated None - Discharge Diagnosis(es) (1) Term Current Visit: Yes Status: Acute (2) Gestational diabetes Current Visit: Yes Status: Acute (3) Normal vaginal delivery Current Visit: Yes Status: Acute Hospital Course: The patient is a 36-year-old 2 para 1001 admitted at 39-5/7 weeks by good dating parameters perches admitted for elective induction of labor with all signs reassuring. Her was complicated by gestational diabetes which ultimately required insulin but was otherwise well controlled. testing was reassuring throughout. Group B strep status is negative. On labor and delivery, she had Pitocin started and later underwent artificial rupture of membranes for clear fluid. She made progress to the active phase and had an epidural catheter placed. She progressed to complete and pushed over the course of approximately 20 minutes to a normal spontaneous vaginal delivery of a viable 6 lbs. 13 oz. baby boy with Apgars of 9 at 1 minute and 9 at 5 minutes. She did have a large condylomatous lesion on a very thin stalk emanating from the perineal body which was removed following delivery and sent for pathological diagnoses. The closure of the wound was incorporated into the closure of the small hernia laceration. Her course was unremarkable vital signs being stable and her temperature was afebrile throughout. She was deemed stable for discharge on day #1 was discharged home to follow-up in the office in 6 weeks' time routinely. Discharge instructions included calling for any significantly increased bleeding or foul-smelling lochia, significantly increased fever or abdominal pain, perineal complaints, breast complaints, or anything else that concerned her. She was additionally instructed to have nothing in the vagina for at least 6 weeks time to include intercourse. She understood her instructions and agrees to follow up as noted above. Discharge medications included continued vitamins as she has opted to breast- feed. She was additionally to use [id number] analgesic pain medications as needed. Maternal blood type is B+ and rubella status is immune. Procedures: #1. Pitocin induction #2. Artificial rupture of membranes #3. Epidural analgesia #4. Normal spontaneous vaginal delivery #5. Excision of condylomatous lesion #6. Repair of perineal laceration Patient Condition at Discharge: Stable Plan - Discharge Summary Discharge Rx Participant: Yes New Discharge Prescriptions: No Action Vit No.179/Iron/Folic [ Tablet] 1 tab PO ONCE Levothyroxine Sodium 1 tab PO ONCE Insulin Glargine,Hum.rec.anlog [Lantus Solostar Pen] 24 units SQ BID Aspirin [Vazalore] 1 tab PO ONCE Insulin Aspart [NovoLOG Flexpen] 15 units SQ BID Discharge Medication List Aspirin [Vazalore] 1 tab PO ONCE 04/08/22 [History] Levothyroxine Sodium 1 tab PO ONCE 04/08/22 [History] Vit No.179/Iron/Folic [ Tablet] 1 tab PO ONCE 04/08/22 [History] Insulin Aspart [NovoLOG Flexpen] 15 units SQ BID 06/22/22 [History] Insulin Glargine,Hum.rec.anlog [Lantus Solostar Pen] 24 units SQ BID 06/22/22 [ History] Follow up Appointment(s)/Referral(s): Faustino Gonzalez MD [STAFF PHYSICIAN] - 6 Weeks Discharge Disposition: HOME SELF-CARE
[2022-07-01 09:34] LABS: Basophils # (A) 0.1 k/uL (0-0.2); Basophils % (A) 1 %; Eosinophils # (A) 0.3 k/uL (0-0.7); Eosinophils % (A) 2 %; Lymphocytes # (A) 2.4 k/uL (1.0-4.8); Lymphocytes % (A) 17 %; MCH 31.9 pg (25.0-35.0); MCHC 33.4 g/dL (31.0-37.0); MCV 95.4 fL (80.0-100.0); Mean Platelet Volume 8.7; Monocytes # (A) 0.8 k/uL (0-1.0); Monocytes % (A) 5 %; Neutrophils # (A) 9.9 k/uL (1.3-7.7); Neutrophils % (A) 72 %; Platelet Count 306 k/uL (150-450); RBC 3.15 m/uL (3.80-5.40); RDW 13.1 % (11.5-15.5); WBC 13.7 k/uL (3.8-10.6)
[2022-07-01] MEDS: SENNOSIDES-DOCUSATE SODIUM 1 EACH TAB PO SCH (10:31)
[2022-07-01 15:31] VITALS: BP 109/69; PULSE 73; TEMP 97.8
== END 2022-07-01 19:45 | disposition home or self-care (01) | DRG 560 ==
LOC: 4FBP 06:29
PROVIDERS: ADMIT Obstetrics & Gynecology; ATTEND Obstetrics & Gynecology
PROC: 10E0XZZ Delivery of Products of Conception, External Approach (ICD-10-PCS; principal; 2022-06-30)
PROC: 0HQ9XZZ Repair Perineum Skin, External Approach (ICD-10-PCS; 2022-06-30)
PROC: 0HB9XZX Excision of Perineum Skin, External Approach, Diagnostic (ICD-10-PCS; 2022-06-30)
PROC: 10907ZC Drainage of Amniotic Fluid, Therapeutic from Products of Conception, Via Natural or Artificial Opening (ICD-10-PCS; 2022-06-30)
PROC: 3E033VJ Introduction of Other Hormone into Peripheral Vein, Percutaneous Approach (ICD-10-PCS; 2022-06-30)
DX: O24.424 Gestational diabetes mellitus in childbirth, insulin controlled (principal); F32.A Depression, unspecified; F41.9 Anxiety disorder, unspecified; O99.344 Other mental disorders complicating childbirth; Z37.0 Single live birth; O98.32 Other infections with a predominantly sexual mode of transmission complicating childbirth; A63.0 Anogenital (venereal) warts; O99.334 Smoking (tobacco) complicating childbirth; Z3A.39 39 weeks gestation of pregnancy; Z87.891 Personal history of nicotine dependence; Z88.1 Allergy status to other antibiotic agents; Z88.0 Allergy status to penicillin; Z86.59 Personal history of other mental and behavioral disorders; Z71.6 Tobacco abuse counseling
CPT/HCPCS: 85025; 86850; 86900; 86901; 88305

== ENCOUNTER 2022-07-30 22:34 | Emergency (ER) | payer OTHER ==
[2022-07-30] MEDS ORDERED: LORazepam 1 MG TAB PO STA (23:22)
[2022-07-31] MEDS ORDERED: ACETAMINOPHEN TAB 500 MG TAB PO STA (00:49)
--- NOTE | 2022-07-31 01:07 | ED ---
General Adult HPI - General Source: patient, RN notes reviewed, old records reviewed Mode of arrival: EMS Limitations: no limitations <Edilberto Gracia - Last Filed: 07/31/22 04:43> <Basim Ferguson - Last Filed: 07/31/22 14:44> - General Chief complaint: Psychiatric Symptoms Stated complaint: MENTAL HEALTH Time Seen by Provider: 07/30/22 22:37 - History of Present Illness Initial comments: Patient is a 38-year-old female with past medical history remarkable for depression, recent delivery one month ago of a healthy child who presents emergency Department complaining of depression as well as statements that she no longer wanted to be here. States she has been feeling this way for quite some time. Was off her antidepressants that she was attempting to breast feed but restarted herself on them. Denies any plans to attempt suicide. Denies any homicidal ideations, attempts complaints. Denies any visual or auditory hallucinations. His no other acute complaints at this time other than chronic intermittent abdominal pain secondary to a umbilical hernia that is currently not causing any symptoms. Did endorse drinking 1 glass of wine earlier today. Has no acute complaints at this time. Presents here for evaluation at this time. (Edilberto Gracia) - Related Data Home Medications Medication Instructions Recorded Confirmed Levothyroxine Sodium 25 mcg PO DAILY 04/08/22 07/31/22 Allergies Allergy/AdvReac Type Severity Reaction Status Date / Time amoxicillin [Amoxicillin] Allergy Swelling Verified 07/31/22 13:41 Penicillins Allergy Anaphylaxis Verified 07/31/22 13:41 Review of Systems ROS Other: All systems not noted in ROS Statement are negative. <Edilberto Gracia - Last Filed: 07/31/22 04:43> ROS Other: All systems not noted in ROS Statement are negative. <Basim Ferguson - Last Filed: 07/31/22 14:44> ROS Statement: Those systems with pertinent positive or pertinent negative responses have been documented in the HPI. Review of Systems: CONST: Denies fever EYES: Denies blurry vision ENT: Denies nasal congestion C/V: Denies Chest pain RESP: Denies shortness of breath GI: Denies abdominal pain : Denies dysuria SKIN: Denies rash. MSK: Denies joint pain. NEURO: Denies headache PSYCH: Denies suicidal and homicidal ideations/plans/attempts. Denies visual or auditory hallucinations. Endorses depression (Edilberto Gracia) Past Medical History Past Medical History: No Reported History Additional Past Medical History / Comment(s): GESTATIONAL DIABETIS, hx alcohol abuse and pancreatitis History of Any Multi-Drug Resistant Organisms: None Reported Past Surgical History: No Surgical Hx Reported Past Psychological History: Anxiety, Depression Smoking Status: Former smoker Past Alcohol Use History: None Reported Past Drug Use History: None Reported <Edilberto Gracia - Last Filed: 07/31/22 04:43> General Exam Limitations: no limitations <Edilberto Gracia - Last Filed: 07/31/22 04:43> - General Exam Comments Initial Comments: General: Appears in no acute distress. HEAD: Normal with no signs of head trauma. EYES: EOMI ENT: Hearing grossly intact, normal oropharynx. RESPIRATORY: Clear breath sounds bilaterally. No wheezes, rales, or rhonchi. C/V: Regular rate and rhythm. S1 and S2 auscultated, peripheral pulses 2+ and intact throughout ABD: Abd is soft, nontender, nondistended. Hernia site unremarkable. No skin changes. No pain. EXT: Normal range of motion, no obvious deformity SKIN: No rashes or lesions observed on exposed skin. NEURO: Alert and oriented 4. (Edilberto Gracia) Course Vital Signs 07/30/22 22:38 Temperature 97.4 F L Pulse Rate 73 Respiratory 18 Rate Blood Pressure 142/88 O2 Sat by Pulse 97 Oximetry Medical Decision Making <Edilberto Gracia - Last Filed: 07/31/22 04:43> <Basim Ferguson - Last Filed: 07/31/22 14:44> - Medical Decision Making Was pt. sent in by a medical professional or institution (, PA, TIE PRESSER, urgent care, hospital, or long term...) When possible be specific @ -No Did you speak to anyone other than the patient for history (EMS, parent, family, police, friend...)? What history was obtained from this source @ -No Did you review nursing and triage notes (agree or disagree)? Why? @ -I reviewed and agree with nursing and triage notes Were old charts reviewed (outside hosp., previous admission, EMS record, old EKG, old radiological studies, urgent care reports/EKG's, long term records)? Report findings @ -No old charts were reviewed Differential Diagnosis (chest pain, altered mental status, abdominal pain women, abdominal pain men, vaginal bleeding, weakness, fever, dyspnea, syncope, headache, dizziness, GI bleed, back pain, seizure, CVA, palpatations, mental health, musculoskeletal)? @ -Differential Mental Health Depression, anxiety, bipolar, psychosis, schizophrenia, borderline personality, situational depression, adjustment disorder, behavioral disorder, brain tumor, malingering, substance abuse, encephalopathy, medication reaction, dementia, hypothyroidism, degenerative neurologic disorder, lupus.... This is not meant to be all-inclusive list EKG interpreted by me (3pts min.). @ -None done X-rays interpreted by me (1pt min.). @ -None done CT interpreted by me (1pt min.). @ -None done U/S interpreted by me (1pt. min.). @ -None done What testing was considered but not performed or refused? (CT, X-rays, U/S, labs)? Why? @ -None What meds were considered but not given or refused? Why? @ -None Did you discuss the management of the patient with other professionals (professionals i.e. , PA, TIE PRESSER, lab, RT, psych nurse, social studies department chair, advertising manager, teacher, desk officer, community case manager)? Give summary @ -No Was smoking cessation discussed for >3mins.? @ -No Was critical care preformed (if so, how long)? @ -No Were there social determinants of health that impacted care today? How? (Homelessness, low income, unemployed, alcoholism, drug addiction, transportation, low edu. Level, literacy, decrease access to med. care, prison, rehab)? @ -No Was there de-escalation of care discussed even if they declined (Discuss DNR or withdrawal of care, Hospice)? DNR status @ -No What co-morbidities impacted this encounter? (DM, HTN, Smoking, COPD, CAD, Cancer, CVA, ARF, Chemo, Hep., AIDS, mental health diagnosis, sleep apnea, morbid obesity)? @ -None Was patient admitted / discharged? Hospital course, mention meds given and route, prescriptions, significant lab abnormalities, going to OR and other pertinent info. @ -Patient presents for mental health evaluation. Was placed in green scrubs. Sitter and suicide precautions ordered. BAT is slightly elevated at 0.07. UDS is pending. Vital signs within acceptable limits. At this time patient is medically cleared for evaluation by psychiatry. Disposition is pending psychiatric evaluation. EPS is notified. Was updated by EPS, initially they were going to admit the patient inpatient psychiatry but after contacting the patient's significant other, decision was made to hold the patient in the ER until the morning when psychiatrist will evaluate the patient. Disposition is pending this evaluation. Undiagnosed new problem with uncertain prognosis? @ -No Drug Therapy requiring intensive monitoring for toxicity (Heparin, Nitro, Insulin, Cardizem)? @ -No Were any procedures done? @ -No Diagnosis/symptom? @ -Encounter for psychiatric evaluation Acute, or Chronic, or Acute on Chronic? @ -Acute Uncomplicated (without systemic symptoms) or Complicated (systemic symptoms)? @ -Uncomplicated Side effects of treatment? @ -No Exacerbation, Progression, or Severe Exacerbation? @ -No Poses a threat to life or bodily function? How? (Chest pain, USA, SD, pneumonia, PE, COPD, DKA, ARF, appy, cholecystitis, CVA, Diverticulitis, Homicidal, Suicidal, threat to staff... and all critical care pts) @ -No (Edilberto Gracia) Patient seen by mental health nurse with plans for discharge Patient reevaluated by myself. Patient resting comfortably in bed. Patient denies suicidal ideation and does contract for safety. (Basim Ferguson) - Lab Data Lab Results 07/31/22 Range/Units 02:39 Coronavirus (PCR) Not Detected (Not Detectd) Disposition <Edilberto Gracia - Last Filed: 07/31/22 04:43> Is patient prescribed a controlled substance at d/c from ED?: No Time of Disposition: 14:43 <Basim Ferguson - Last Filed: 07/31/22 14:44> Clinical Impression: Encounter for psychological evaluation, Depression Disposition: HOME SELF-CARE Condition: Stable Instructions (If sedation given, give patient instructions): Help Prevent Suicide (ED), Depression (ED) Additional Instructions: Please do follow-up with your doctor the next day or 2 for recheck. Please also follow-up with counselor, numbers abided. Return for thoughts of self-harm, worsening symptoms or other concerns. Referrals: Enoc Duckworth MD [STAFF PHYSICIAN] - 1-2 days
[2022-07-31] MEDS ORDERED: LORazepam 2 MG/ML INJ IM STA (02:41)
[2022-07-31] MEDS ORDERED: IBUPROFEN 800 MG TAB PO STA (03:24)
[2022-07-31] MEDS ORDERED: LORazepam 1 MG TAB PO STA (03:24)
[2022-07-31] MEDS ORDERED: LORazepam 1 MG TAB PO ONE (11:10)
[2022-07-31] MEDS ORDERED: NICOTINE 7MG/24HR PATCH TRANSDERM STA (14:02)
[2022-07-31 14:56] VITALS: BP 130/86; PULSE 84; RESP 16; TEMP 98.2
== END 2022-07-31 14:56 | disposition home or self-care (01) ==
LOC: EC 22:34
DX: Z00.8 Encounter for other general examination (principal); F32.A Depression, unspecified; F41.9 Anxiety disorder, unspecified; Z87.891 Personal history of nicotine dependence; Z79.899 Other long term (current) drug therapy; Z88.0 Allergy status to penicillin
CPT/HCPCS: 82075; 87635; 99285; S4990

== ENCOUNTER → 2022-09-22 | Outpatient (CLI) | payer OTHER ==
[2022-09-22 21:43] LABS: Basophils # (A) 0.05 X 10*3/uL (0.00-0.10); Basophils % (A) 0.3 %; Eosinophils # (A) 0.26 X 10*3/uL (0.04-0.35); Eosinophils % (A) 1.7 %; HCT 39.7 % (37.2-46.3); HGB 13.1 d/dL (12.0-15.0); Lymphocytes # (A) 3.17 X 10*3/uL (0.90-5.00); Lymphocytes % (A) 21.1 %; MCH 31.4 pg (27.0-32.0); MCV 95.2 FL (80.0-97.0); Mean Platelet Volume 10.6 FL (9.5-12.2); Monocytes # (A) 0.91 X 10*3/uL (0.20-1.00); Monocytes % (A) 6.1 %; NRBC Per 100 WBC 0 X 10*3/uL (0.00-0.01); Neutrophils # (A) 10.56 X 10*3/uL (1.80-7.70); Neutrophils % (A) 70.4 %; Platelet Count 385 X 10*3/uL (140-440); RBC 4.17 X 10*6/uL (4.10-5.20); RDW 13.2 % (11.5-14.5); WBC 15.01 X 10*3/uL (4.50-10.00)
== END | disposition home or self-care (01) ==
LOC: LABPAT 13:27
PROVIDERS: ATTEND Obstetrics & Gynecology
DX: Z30.2 Encounter for sterilization (principal)
CPT/HCPCS: 85025

== ENCOUNTER 2022-09-24 07:34 | Day surgery (SDC) | payer OTHER ==
[2022-09-17 15:05] VITALS: BMI 29.2
--- NOTE | 2022-09-22 13:17 | HP ---
HISTORY AND PHYSICAL DATE OF SURGERY: September 24, 2022. HISTORY OF PRESENT ILLNESS: The patient is a 37-year-old 2, para 2-0-0-2 who is status post recent normal vaginal delivery and has requested permanent sterilization by laparoscopy using Filshie clips. She is aware of other potential options, which are reversible in nature and has requested to proceed with this procedure. PAST MEDICAL HISTORY: Significant for history of asthma as well as hypothyroidism and some anxiety/depression. PAST SURGICAL HISTORY: She had tubes in her ears as a child. OBSTETRICAL HISTORY: 2, para 2-0-0-2 with 2 term vaginal deliveries without complications. Current method of contraception is condoms pending tubal ligation. GYNECOLOGIC HISTORY: Unremarkable with no history of any infections to include STDs. FAMILY HISTORY: Noncontributory. SOCIAL HISTORY: The patient is and is a homemaker. She is a nonsmoker and denies any significant alcohol or any other social concerns. CURRENT MEDICATIONS: Include levothyroxine 25 mcg daily. She additionally takes insulin during the , but may not be taking that at this time. ALLERGIES: Cillins cause rash and shortness of breath as well as hives and swelling and are potentially anaphylactic. REVIEW OF SYSTEMS: Confined to history of present illness. PHYSICAL EXAMINATION: VITAL SIGNS: Stable. The patient is afebrile. GENERAL: This is a well-developed, well-nourished white female, in no acute distress. HEART: Has a regular rhythm and rate without murmur. LUNGS: Clear to auscultation bilaterally in all segura. ABDOMEN: Nondistended, has normoactive bowel sounds, soft, nontender, without any palpable masses, hepatosplenomegaly, or hernias. EXTREMITIES: Without any cyanosis, clubbing, or edema and are nontender to palpation bilaterally. PELVIC: Demonstrates normal external genitalia and BUS with normal vaginal mucosa and cervix. There is no cervical motion tenderness. Uterus is 4 to 5 weeks in size, retroverted, mobile, nontender, normal shape. The adnexa are normal and nontender without mass bilaterally. ASSESSMENT AND PLAN: Undesired fertility: The patient is well aware of potentially long-term and reversible options and has requested instead to proceed with laparoscopic bilateral tubal occlusion with Filshie clips. The risks and complications of the procedure have been thoroughly discussed including the risks for bleeding, bleeding requiring transfusion, infection, and injury to local structures to specifically include the bowel, bladder, and ureters. She has understood all of this and agreed to proceed. We are scheduled on the morning of September 24, 2022, for the procedure as outlined above. MMODL / IJN: [id number] /
[~2022-09-24 07:34] MED LIST: Pre Op ABX Message 1 EACH MISC MISCELLANE ONE
[2022-09-24] MEDS ORDERED: LACTATED RINGERS 1,000 ML IV SCH ×2 (07:53→11:15)
[2022-09-24] MEDS ORDERED: ONDANSETRON 4 MG/2 ML VIAL ONE (08:07)
[2022-09-24] MEDS ORDERED: LIDOCAINE 1% (10MG/ML) FOR IV START INTRADERMA ONE (08:37)
[2022-09-24] MEDS ORDERED: DEXAMETHASONE SOD PHOSPHATE 4 MG/ML 1 ML VIAL IV ONE (08:55)
[2022-09-24] MEDS ORDERED: MIDAZOLAM 2 MG/2 ML VIAL IVP ONE (08:56)
[2022-09-24] MEDS ORDERED: KETOROLAC 15 MG/ML 1 ML VIAL ONE (10:18)
[2022-09-24] MEDS ORDERED: LIDOCAINE 2% INJ 20 MG/ML (2 ML VIAL) ONE (10:18)
[2022-09-24] MEDS ORDERED: fentaNYL (PF) 50 MCG/ML 2 ML AMP ONE (10:18)
[2022-09-24] MEDS ORDERED: SUCCINYLCHOLINE CHLORIDE 200 MG/10 ML VIAL IV ONE (10:18)
[2022-09-24] MEDS ORDERED: PROPOFOL 10 MG/ML 20 ML VIAL IV ONE (10:18)
[2022-09-24] MEDS ORDERED: NEOSTIGMINE 1 MG/ML 10 ML VIAL ONE (10:18)
[2022-09-24] MEDS ORDERED: HYDROmorphone (PF) 1 MG/ML ONE (10:18)
[2022-09-24] MEDS ORDERED: GLYCOPYRROLATE 0.2 MG/ML 2 ML VIAL ONE (10:18)
[2022-09-24] MEDS ORDERED: ROCURONIUM 10 MG/ML (5 ML VIAL) IV ONE (10:18)
[2022-09-24] MEDS ORDERED: BUPIVACAINE (PF) 0.25% 30 ML VIAL SQ ONE ×2 (10:43→10:53)
[2022-09-24] MEDS ORDERED: ONDANSETRON 4 MG/2 ML VIAL IVP PRN (11:05)
[2022-09-24] MEDS ORDERED: SIMETHICONE 80 MG CHEWABLE PO PRN (11:05)
[2022-09-24] MEDS ORDERED: METOCLOPRAMIDE 5 MG/ML 2 ML VIAL IVP PRN (11:05)
[2022-09-24] MEDS ORDERED: KETOROLAC 15 MG/ML 1 ML VIAL IVP PRN (11:05)
[2022-09-24] MEDS ORDERED: diphenhydrAMINE 50 MG/ML 1 ML VIAL IVP PRN (11:05)
--- NOTE | 2022-09-24 11:10 | P.OP ---
Date of Procedure: 09/24/22 Preoperative Diagnosis: #1. Multiparity #2. Undesired fertility Postoperative Diagnosis: Same Procedure(s) Performed: #1. Laparoscopic bilateral tubal occlusion with Filshie clips Anesthesia: RAYMOND Surgeon: Faustino Gonzalez Estimated Blood Loss (ml): 5 IV fluids (ml): 400 Urine output (ml): 40 Pathology: none sent Condition: stable Disposition: PACU Operative Findings: Preoperative pelvic examination demonstrated a 4-5 week retroverted normal shaped uterus with normal adnexa bilaterally. Intraoperatively, the uterus, tubes, and ovaries were entirely normal to inspection. There was no evidence of any pathology throughout the pelvis. The upper abdomen was equally benign. A Filshie clip was firmly placed across the isthmic portion of each fallopian tube bilaterally. Description of Procedure: The patient was prepped and draped in usual fashion after general endotracheal anesthesia was administered by the anesthesiologist. A speculum was placed and the anterior lip of the cervix grasped with a single-tooth tenaculum allowing placement of an acorn cannula for uterine manipulation. The bladder was drained of approximately 40 mL of clear favian urine. Attention was turned to the abdomen where a 5 mm incision made in the transverse plane below the umbilicus allowing insertion of a 5 mm optical trocar under direct visualization without difficulty. A pneumoperitoneum was infused and Trendelenburg positioning utilized. A site was selected approximate 4-5 cm above the pubic symphysis in the midline where an 8 mm incision was made in the transverse plane. An 8 mm trocar was inserted under direct visualization without difficulty. The blunt probe was utilized to sweep the bowel from the pelvis and the findings are as noted above with entirely normal pelvic findings and no evidence of pathology. The probe was replaced with a Filshie clip applicator which was utilized to place a Filshie clip across the entire thickness of the isthmic portion of the right fallopian tube approximately 2-3 cm from the cornu where it was firmly affixed. A similar operation was carried out on the left side of the difficulty. After reexamining the pelvis in the upper abdomen and finding no pathology, the instrumentation was removed and the pneumoperitoneum entirely evacuated through the 2 ports. The ports were then removed and the skin incisions closed with interrupted subcuticular stitches of 4-0 Vicryl followed by half-inch Steri-Strips placed with Mastisol. The 2 incisions were infused equally with a total of 10 mL of half percent Marcaine without epinephrine divided equally between the 2 incision sites. Estimated blood loss was less than 5 mL. There were no complications. All sponge, instrument, needle counts were correct. The patient tolerated the procedure well and proceeded to the recovery room in stable condition.
[2022-09-24 11:11] VITALS: RESP 16; TEMP 97.2
[2022-09-24] MEDS ORDERED: HYDROmorphone 0.5 MG/0.5 ML SYRINGE IVP ONE ×2 (11:16→11:50)
[2022-09-24 12:30] VITALS: BP 147/83; PULSE 64
[2022-09-24] MEDS ORDERED: HYDROcodone/APAP 5-325MG 1 EACH TAB ONE (12:31)
[2022-09-24] MEDS ORDERED: HYDROcodone/APAP 5-325MG 1 EACH TAB PO ONE (12:34)
== END 2022-09-24 13:20 | disposition home or self-care (01) ==
LOC: OR 07:34
PROVIDERS: ATTEND Obstetrics & Gynecology
DX: Z30.2 Encounter for sterilization (principal); J45.909 Unspecified asthma, uncomplicated; E03.9 Hypothyroidism, unspecified; F41.9 Anxiety disorder, unspecified; F32.A Depression, unspecified; F17.200 Nicotine dependence, unspecified, uncomplicated; Z79.890 Hormone replacement therapy; Z88.8 Allergy status to other drugs, medicaments and biological substances; Z88.0 Allergy status to penicillin; Z88.1 Allergy status to other antibiotic agents; Z88.5 Allergy status to narcotic agent; Z79.899 Other long term (current) drug therapy
CPT/HCPCS: 81025; 58671; J2250; J0330; J1100; J2710; J2405; J3010; J1170 ×2; J1885; J2704; J2001

== ENCOUNTER 2022-10-17 02:03 | Inpatient (IN) | payer MEDICAID, OTHER ==
--- NOTE | 2022-10-17 02:16 | ED ---
Psych HPI - General Source: RN notes reviewed, old records reviewed Limitations: no limitations - History of Present Illness MD Complaint: suicidal ideation, feels depressed -: unknown Associated Psychiatric Symptoms: depression, suicidal ideation History of same: Yes Quality: constant Improves With: none Context: recent alcohol abuse, significant life stressor Associated Symptoms: denies other symptoms Treatments Prior to Arrival: placed on mental health hold If Self Harm: admits thoughts of self harm <Sanchez Weaver - Last Filed: 10/17/22 04:15> <Nahid Murillo - Last Filed: 10/17/22 13:28> - General Stated Complaint: Mental Health Petition Time Seen by Provider: 10/17/22 02:08 - History of Present Illness Initial Comments: This is a 37-year-old female brought in under petition for psychiatric evaluation secondary to overdose. Patient denying overdose and attempt of suicide but EMSs called the patient's house for overdose reported suicidal ideation (Sanchez Weaver) - Related Data Home Medications Medication Instructions Recorded Confirmed Levothyroxine Sodium 25 mcg PO DAILY 04/08/22 09/17/22 Lurasidone [Latuda] 40 mg PO DAILY 09/17/22 09/17/22 hydrOXYzine pamoate [Vistaril] 1 tab PO BID PRN 09/24/22 09/24/22 Allergies Allergy/AdvReac Type Severity Reaction Status Date / Time amoxicillin [Amoxicillin] Allergy Swelling Verified 10/17/22 02:46 codeine Allergy Rash/Hives Verified 10/17/22 02:46 Penicillins Allergy Anaphylaxis Verified 10/17/22 02:46 Review of Systems ROS Other: All systems not noted in ROS Statement are negative. <Sanchez Weaver - Last Filed: 10/17/22 04:15> ROS Other: All systems not noted in ROS Statement are negative. <Nahid Murillo - Last Filed: 10/17/22 13:28> ROS Statement: Those systems with pertinent positive or pertinent negative responses have been documented in the HPI. Past Medical History Past Medical History: No Reported History, Thyroid Disorder Additional Past Medical History / Comment(s): GESTATIONAL DIABETeS, History of Any Multi-Drug Resistant Organisms: None Reported Past Surgical History: No Surgical Hx Reported Additional Past Surgical History / Comment(s): BMT CHILD Past Anesthesia/Blood Transfusion Reactions: No Reported Reaction Past Psychological History: Anxiety, Depression Additional Psychological History / Comment(s): states hx of anx/depression. no meds. discussed pp depression/edinburgh scale. Smoking Status: Former smoker Past Alcohol Use History: None Reported Additional Past Alcohol Use History / Comment(s): QUIT SMOKING 09/15/22-HAD BEEN SMOKING OFF AND OFF FOR PAST 16 YRS ABOUT 1/2 PPD. PAST HX OF ALCOHOL ABUSE AGE 19 Past Drug Use History: Marijuana Additional Drug Use History / Comment(s): USES EDIBLE MARIJUANA ON OCCASION- AWARE NO USE FOR 24 HOURS PRIOR TO PROCEDURE - Past Family History Father Family Medical History: Cancer Mother Family Medical History: Cancer <Sanchez Weaver - Last Filed: 10/17/22 04:15> General Exam General appearance: alert, in no apparent distress Head exam: Present: atraumatic, normocephalic, normal inspection Eye exam: Present: normal appearance, PERRL, EOMI. Absent: scleral icterus, conjunctival injection, periorbital swelling ENT exam: Present: normal exam, mucous membranes moist Neck exam: Present: normal inspection. Absent: tenderness, meningismus, lymphadenopathy Respiratory exam: Present: normal lung sounds bilaterally. Absent: respiratory distress, wheezes, rales, rhonchi, stridor Cardiovascular Exam: Present: regular rate, normal rhythm, normal heart sounds. Absent: systolic murmur, diastolic murmur, rubs, gallop, clicks GI/Abdominal exam: Present: soft, normal bowel sounds. Absent: distended, tenderness, guarding, rebound, rigid Extremities exam: Present: normal inspection, full ROM, normal capillary refill. Absent: tenderness, pedal edema, joint swelling, calf tenderness Back exam: Present: normal inspection Neurological exam: Present: alert, oriented X3, CN II-XII intact Psychiatric exam: Present: normal affect, normal mood Skin exam: Present: warm, dry, intact, normal color. Absent: rash <Sanchez Weaver - Last Filed: 10/17/22 04:15> Course <Sanchez Weaver - Last Filed: 10/17/22 04:15> <Nahid Murillo - Last Filed: 10/17/22 13:28> Vital Signs 10/17/22 10/17/22 02:38 06:52 Pulse Rate 101 H 98 Respiratory 20 18 Rate Blood Pressure 117/91 103/89 O2 Sat by Pulse 98 98 Oximetry - Reevaluation(s) Reevaluation #1: 10/17/22 04:16 Medical records reviewed (Sanchez Weaver) Reevaluation #2: 10/17/22 13:28 Physician certification filled out by me, Dr. Murillo (Nahid Murillo) Medical Decision Making - Lab Data Result diagrams: 10/17/22 03:24 - EKG Data -: EKG Interpreted by Me (EKG is sinus tachycardia 101 IN 156 QRS 101 QTC 431) <Sanchez Weaver - Last Filed: 10/17/22 04:15> - Lab Data Result diagrams: 10/17/22 03:24 10/17/22 03:50 <Nahid Murillo - Last Filed: 10/17/22 13:28> - Medical Decision Making The patient was endorsed me this morning at her shift change pending EPS evaluation for depression and suicidal thoughts she denies overdosing. She was petitioned. Patient is to be admitted for inpatient evaluation and treatmentWas pt. sent in by a medical professional or institution (, PA, AUTO BODY WORKER, urgent care, hospital, or jail...) When possible be specific @ -Dr. Weaver Did you speak to anyone other than the patient for history (EMS, parent, family, police, friend...)? What history was obtained from this source @ -No Did you review nursing and triage notes (agree or disagree)? Why? @ -I reviewed and agree with nursing and triage notes Were old charts reviewed (outside hosp., previous admission, EMS record, old EKG, old radiological studies, urgent care reports/EKG's, jail records)? Report findings @ -No old charts were reviewed Differential Diagnosis (chest pain, altered mental status, abdominal pain women, abdominal pain men, vaginal bleeding, weakness, fever, dyspnea, syncope, headache, dizziness, GI bleed, back pain, seizure, CVA, palpatations, mental health, musculoskeletal)? @ -Depression, suicidal ideation EKG interpreted by me (3pts min.). @ -None ordered by me X-rays interpreted by me (1pt min.). @ -None done CT interpreted by me (1pt min.). @ -None done U/S interpreted by me (1pt. min.). @ -None done What testing was considered but not performed or refused? (CT, X-rays, U/S, labs)? Why? @ -None What meds were considered but not given or refused? Why? @ -None Did you discuss the management of the patient with other professionals (professionals i.e. , PA, AUTO BODY WORKER, lab, RT, psych nurse, high school social science teacher, scientific illustrator, teacher, customer service security officer, piano case and bench assembler)? Give summary @ -EPS service Was smoking cessation discussed for >3mins.? @ -No Was critical care preformed (if so, how long)? @ -No Were there social determinants of health that impacted care today? How? (Homelessness, low income, unemployed, alcoholism, drug addiction, transportation, low edu. Level, literacy, decrease access to med. care, senior living, re hab)? @ -No Was there de-escalation of care discussed even if they declined (Discuss DNR or withdrawal of care, Hospice)? DNR status @ -No What co-morbidities impacted this encounter? (DM, HTN, Smoking, COPD, CAD, Cancer, CVA, ARF, Chemo, Hep., AIDS, mental health diagnosis, sleep apnea, morbid obesity)? @ -None Was patient admitted / discharged? Hospital course, mention meds given and route, prescriptions, significant lab abnormalities, going to OR and other pertinent info. @ -hospital course the patient is admitted for inpatient treatment of major depression and suicidal ideation Undiagnosed new problem with uncertain prognosis? @ -No Drug Therapy requiring intensive monitoring for toxicity (Heparin, Nitro, Insulin, Cardizem)? @ -No Were any procedures done? @ -No Diagnosis/symptom? @ -Major depression, recurrent, suicidal ideation Acute, or Chronic, or Acute on Chronic? @ -Acute Uncomplicated (without systemic symptoms) or Complicated (systemic symptoms)? @ -default Side effects of treatment? @ -No Exacerbation, Progression, or Severe Exacerbation? @ -No Poses a threat to life or bodily function? How? (Chest pain, [place], [place], pneumonia, PE, COPD, DKA, ARF, appy, cholecystitis, CVA, Diverticulitis, Homicidal, Suicidal, threat to staff... and all critical care pts) @ -S, major depression, suicidal ideation (Nahid Murillo) - Lab Data Lab Results 10/17/22 10/17/22 10/17/22 Range/Units 03:24 03:30 03:30 WBC 11.5 H (3.8-10.6) k/uL RBC 4.32 (3.80-5.40) m/uL Hgb 13.8 (11.4-16.0) gm/dL Hct 40.7 (34.0-46.0) % MCV 94.2 (80.0-100.0) fL MCH 32.0 (25.0-35.0) pg MCHC 33.9 (31.0-37.0) g/dL RDW 13.4 (11.5-15.5) % Plt Count 345 (150-450) k/uL MPV 8.2 Neutrophils % 63 % Lymphocytes % 27 % Monocytes % 5 % Eosinophils % 2 % Basophils % 0 % Neutrophils # 7.2 (1.3-7.7) k/uL Lymphocytes # 3.1 (1.0-4.8) k/uL Monocytes # 0.5 (0-1.0) k/uL Eosinophils # 0.2 (0-0.7) k/uL Basophils # 0.0 (0-0.2) k/uL Sodium (137-145) mmol/L Potassium (3.5-5.1) mmol/L Chloride (98-107) mmol/L Carbon Dioxide (22-30) mmol/L Anion Gap mmol/L BUN (7-17) mg/dL Creatinine (0.52-1.04) mg/dL Est GFR (CKD-EPI)AfAm (>60 ml/min/1.73 sqM) Est GFR (CKD-EPI)NonAf (>60 ml/min/1.73 sqM) Glucose (74-99) mg/dL Calcium (8.4-10.2) mg/dL Total Bilirubin (0.2-1.3) mg/dL AST (14-36) U/L ALT (4-34) U/L Alkaline Phosphatase (38-126) U/L Total Protein (6.3-8.2) g/dL Albumin (3.5-5.0) g/dL Urine Color Colorless Urine Appearance Clear (Clear) Urine pH 6.0 (5.0-8.0) Ur Specific [place] 1.002 (1.001-1.035) Urine Protein Negative (Negative) Urine Glucose (UA) Negative (Negative) Urine Ketones Negative (Negative) Urine Blood Negative (Negative) Urine Nitrite Negative (Negative) Urine Bilirubin Negative (Negative) Urine Urobilinogen 0.2 (<2.0) mg/dL Ur Leukocyte Esterase Trace H (Negative) Urine WBC 7 H (0-5) /hpf Urine WBC Clumps Rare H (None) /hpf Ur Squamous Epith Cells 5 H (0-4) /hpf Urine Bacteria Rare H (None) /hpf Urine HCG, Qual Not Detected (Not Detectd) Salicylates mg/dL Urine Opiates Screen Not Detected (NotDetected) Ur Oxycodone Screen Not Detected (NotDetected) Urine Methadone Screen Not Detected (NotDetected) Ur Propoxyphene Screen Not Detected (NotDetected) Acetaminophen ug/mL Ur Barbiturates Screen Not Detected (NotDetected) U Tricyclic Antidepress Not Detected (NotDetected) Ur Phencyclidine Scrn Not Detected (NotDetected) Ur Amphetamines Screen Not Detected (NotDetected) U Methamphetamines Scrn Not Detected (NotDetected) U Benzodiazepines Scrn Not Detected (NotDetected) Urine Cocaine Screen Detected H (NotDetected) U Marijuana (THC) Screen Not Detected (NotDetected) Serum Alcohol mg/dL 10/17/22 Range/Units 03:50 WBC (3.8-10.6) k/uL RBC (3.80-5.40) m/uL Hgb (11.4-16.0) gm/dL Hct (34.0-46.0) % MCV (80.0-100.0) fL MCH (25.0-35.0) pg MCHC (31.0-37.0) g/dL RDW (11.5-15.5) % Plt Count (150-450) k/uL MPV Neutrophils % % Lymphocytes % % Monocytes % % Eosinophils % % Basophils % % Neutrophils # (1.3-7.7) k/uL Lymphocytes # (1.0-4.8) k/uL Monocytes # (0-1.0) k/uL Eosinophils # (0-0.7) k/uL Basophils # (0-0.2) k/uL Sodium 141 (137-145) mmol/L Potassium 3.8 (3.5-5.1) mmol/L Chloride 105 (98-107) mmol/L Carbon Dioxide 20 L (22-30) mmol/L Anion Gap 16 mmol/L BUN 6 L (7-17) mg/dL Creatinine 0.56 (0.52-1.04) mg/dL Est GFR (CKD-EPI)AfAm >90 (>60 ml/min/1.73 sqM) Est GFR (CKD-EPI)NonAf >90 (>60 ml/min/1.73 sqM) Glucose 126 H (74-99) mg/dL Calcium 9.8 (8.4-10.2) mg/dL Total Bilirubin 0.6 (0.2-1.3) mg/dL AST 21 (14-36) U/L ALT 24 (4-34) U/L Alkaline Phosphatase 87 (38-126) U/L Total Protein 7.9 (6.3-8.2) g/dL Albumin 4.7 (3.5-5.0) g/dL Urine Color Urine Appearance (Clear) Urine pH (5.0-8.0) Ur Specific [place] (1.001-1.035) Urine Protein (Negative) Urine Glucose (UA) (Negative) Urine Ketones (Negative) Urine Blood (Negative) Urine Nitrite (Negative) Urine Bilirubin (Negative) Urine Urobilinogen (<2.0) mg/dL Ur Leukocyte Esterase (Negative) Urine WBC (0-5) /hpf Urine WBC Clumps (None) /hpf Ur Squamous Epith Cells (0-4) /hpf Urine Bacteria (None) /hpf Urine HCG, Qual (Not Detectd) Salicylates <1.0 mg/dL Urine Opiates Screen (NotDetected) Ur Oxycodone Screen (NotDetected) Urine Methadone Screen (NotDetected) Ur Propoxyphene Screen (NotDetected) Acetaminophen <10.0 ug/mL Ur Barbiturates Screen (NotDetected) U Tricyclic Antidepress (NotDetected) Ur Phencyclidine Scrn (NotDetected) Ur Amphetamines Screen (NotDetected) U Methamphetamines Scrn (NotDetected) U Benzodiazepines Scrn (NotDetected) Urine Cocaine Screen (NotDetected) U Marijuana (THC) Screen (NotDetected) Serum Alcohol 122 mg/dL Disposition <Sanchez Weaver - Last Filed: 10/17/22 04:15> Decision Date: 10/17/22 Decision Time: 13:28 <Nahid Murillo - Last Filed: 10/17/22 13:28> Clinical Impression: Major depression, recurrent, Suicidal ideation Disposition: TRANSFER TO PSYCH HOSP/UNIT Condition: Stable Referrals: Aren Schmid MD [Primary Care Provider] - 1-2 days
[2022-10-17] MEDS ORDERED: LORazepam 2 MG/ML INJ IV STA (03:03)
[2022-10-17] MEDS ORDERED: SODIUM CHLORIDE 0.9% 1,000 ML IV STA (03:03)
[2022-10-17 03:32] LABS: Basophils % (A) 0 %; Eosinophils # (A) 0.2 k/uL (0-0.7); Eosinophils % (A) 2 %; HCT 40.7 % (34.0-46.0); HGB 13.8 gm/dL (11.4-16.0); Lymphocytes # (A) 3.1 k/uL (1.0-4.8); Lymphocytes % (A) 27 %; MCHC 33.9 g/dL (31.0-37.0); MCV 94.2 fL (80.0-100.0); Mean Platelet Volume 8.2; Monocytes # (A) 0.5 k/uL (0-1.0); Monocytes % (A) 5 %; Neutrophils # (A) 7.2 k/uL (1.3-7.7); Neutrophils % (A) 63 %; Platelet Count 345 k/uL (150-450); RBC 4.32 m/uL (3.80-5.40); RDW 13.4 % (11.5-15.5); WBC 11.5 k/uL (3.8-10.6)
[2022-10-17 04:14] LABS: ALT 24 U/L (4-34); AST 21 U/L (14-36); Acetaminophen <10.0 ug/mL; African American GFR (CKD) >90 (>60 ml/min/1.73 sqM); Albumin 4.7 g/dL (3.5-5.0); Alkaline Phosphatase 87 U/L (38-126); Anion Gap 16 mmol/L; Blood Urea Nitrogen 6 mg/dL (7-17); Calcium 9.8 mg/dL (8.4-10.2); Carbon Dioxide 20 mmol/L (22-30); Chloride 105 mmol/L (98-107); Glucose 126 mg/dL (74-99); Non-African American GFR(CKD) >90 (>60 ml/min/1.73 sqM); Potassium 3.8 mmol/L (3.5-5.1); Salicylate <1.0 mg/dL; Sodium 141 mmol/L (137-145); Total Bilirubin 0.6 mg/dL (0.2-1.3); Total Protein 7.9 g/dL (6.3-8.2)
[2022-10-17 04:21] LABS: Appearance,Urine Clear (Clear); Bilirubin,Urine Negative (Negative); Blood,Urine Negative (Negative); Color,Urine Colorless; Glucose,Urine (UA) Negative (Negative); Ketones,Urine Negative (Negative); Leukocyte Esterase,Urine Trace (Negative); Nitrite,Urine Negative (Negative); Protein,Urine Negative (Negative); Specific Gravity,Urine 1.002 (1.001-1.035); Urobilinogen,Urine 0.2 mg/dL (<2.0)
[2022-10-17 04:21] LABS: Alcohol 122 mg/dL
[2022-10-17 04:24] LABS: Squamous Epithelial Cell,Urine 5 /hpf (0-4); WBC,Urine 7 /hpf (0-5)
[2022-10-17 04:25] LABS: Amphetamine Screen,Urine Not Detected (NotDetected); Bacteria,Urine Rare /hpf; Barbiturate Screen,Urine Not Detected (NotDetected); Benzodiazepines Screen,Urine Not Detected (NotDetected); Cocaine Screen,Urine Detected (NotDetected); Methadone Screen, Urine Not Detected (NotDetected); Opiate Screen,Urine Not Detected (NotDetected); Oxycodone Screen, Urine Not Detected (NotDetected); Phencyclidine Screen,Urine Not Detected (NotDetected); Tricyclic Antidepressant,Urine Not Detected (NotDetected); Urn Cannabinoid Scrn Not Detected (NotDetected)
[2022-10-17] MEDS ORDERED: NICOTINE 21MG/24HR PATCH TRANSDERM STA (04:33)
[2022-10-17] MEDS ORDERED: LORazepam 2 MG/ML INJ IM STA (05:19)
[2022-10-17] MEDS ORDERED: clonazePAM 0.5 MG TAB PO STA (14:55)
[2022-10-17] MEDS ORDERED: MAG HYDROX/AL HYDROX/SIMETH 30 ML CUP PO PRN (15:45)
[2022-10-17] MEDS ORDERED: ACETAMINOPHEN TAB 325 MG TAB PO PRN (15:45)
[2022-10-17] MEDS ORDERED: MAGNESIUM HYDROXIDE 2,400 MG/30 ML CUP PO PRN (15:45)
--- NOTE | 2022-10-17 16:18 | ED ---
Medical Decision Making - Medical Decision Making The patient was wanted by security prior to admission he did try to set off x- ray shows evidence of surgical clips in the pelvis no other foreign body seen - Lab Data Result diagrams: 10/17/22 03:24 10/17/22 03:50 Lab Results 10/17/22 10/17/22 10/17/22 Range/Units 03:24 03:30 03:30 WBC 11.5 H (3.8-10.6) k/uL RBC 4.32 (3.80-5.40) m/uL Hgb 13.8 (11.4-16.0) gm/dL Hct 40.7 (34.0-46.0) % MCV 94.2 (80.0-100.0) fL MCH 32.0 (25.0-35.0) pg MCHC 33.9 (31.0-37.0) g/dL RDW 13.4 (11.5-15.5) % Plt Count 345 (150-450) k/uL MPV 8.2 Neutrophils % 63 % Lymphocytes % 27 % Monocytes % 5 % Eosinophils % 2 % Basophils % 0 % Neutrophils # 7.2 (1.3-7.7) k/uL Lymphocytes # 3.1 (1.0-4.8) k/uL Monocytes # 0.5 (0-1.0) k/uL Eosinophils # 0.2 (0-0.7) k/uL Basophils # 0.0 (0-0.2) k/uL Sodium (137-145) mmol/L Potassium (3.5-5.1) mmol/L Chloride (98-107) mmol/L Carbon Dioxide (22-30) mmol/L Anion Gap mmol/L BUN (7-17) mg/dL Creatinine (0.52-1.04) mg/dL Est GFR (CKD-EPI)AfAm (>60 ml/min/1.73 sqM) Est GFR (CKD-EPI)NonAf (>60 ml/min/1.73 sqM) Glucose (74-99) mg/dL Calcium (8.4-10.2) mg/dL Total Bilirubin (0.2-1.3) mg/dL AST (14-36) U/L ALT (4-34) U/L Alkaline Phosphatase (38-126) U/L Total Protein (6.3-8.2) g/dL Albumin (3.5-5.0) g/dL Urine Color Colorless Urine Appearance Clear (Clear) Urine pH 6.0 (5.0-8.0) Ur Specific [place] 1.002 (1.001-1.035) Urine Protein Negative (Negative) Urine Glucose (UA) Negative (Negative) Urine Ketones Negative (Negative) Urine Blood Negative (Negative) Urine Nitrite Negative (Negative) Urine Bilirubin Negative (Negative) Urine Urobilinogen 0.2 (<2.0) mg/dL Ur Leukocyte Esterase Trace H (Negative) Urine WBC 7 H (0-5) /hpf Urine WBC Clumps Rare H (None) /hpf Ur Squamous Epith Cells 5 H (0-4) /hpf Urine Bacteria Rare H (None) /hpf Urine HCG, Qual Not Detected (Not Detectd) Salicylates mg/dL Urine Opiates Screen Not Detected (NotDetected) Ur Oxycodone Screen Not Detected (NotDetected) Urine Methadone Screen Not Detected (NotDetected) Ur Propoxyphene Screen Not Detected (NotDetected) Acetaminophen ug/mL Ur Barbiturates Screen Not Detected (NotDetected) U Tricyclic Antidepress Not Detected (NotDetected) Ur Phencyclidine Scrn Not Detected (NotDetected) Ur Amphetamines Screen Not Detected (NotDetected) U Methamphetamines Scrn Not Detected (NotDetected) U Benzodiazepines Scrn Not Detected (NotDetected) Urine Cocaine Screen Detected H (NotDetected) U Marijuana (THC) Screen Not Detected (NotDetected) Serum Alcohol mg/dL Coronavirus (PCR) (Not Detectd) 10/17/22 10/17/22 Range/Units 03:50 13:15 WBC (3.8-10.6) k/uL RBC (3.80-5.40) m/uL Hgb (11.4-16.0) gm/dL Hct (34.0-46.0) % MCV (80.0-100.0) fL MCH (25.0-35.0) pg MCHC (31.0-37.0) g/dL RDW (11.5-15.5) % Plt Count (150-450) k/uL MPV Neutrophils % % Lymphocytes % % Monocytes % % Eosinophils % % Basophils % % Neutrophils # (1.3-7.7) k/uL Lymphocytes # (1.0-4.8) k/uL Monocytes # (0-1.0) k/uL Eosinophils # (0-0.7) k/uL Basophils # (0-0.2) k/uL Sodium 141 (137-145) mmol/L Potassium 3.8 (3.5-5.1) mmol/L Chloride 105 (98-107) mmol/L Carbon Dioxide 20 L (22-30) mmol/L Anion Gap 16 mmol/L BUN 6 L (7-17) mg/dL Creatinine 0.56 (0.52-1.04) mg/dL Est GFR (CKD-EPI)AfAm >90 (>60 ml/min/1.73 sqM) Est GFR (CKD-EPI)NonAf >90 (>60 ml/min/1.73 sqM) Glucose 126 H (74-99) mg/dL Calcium 9.8 (8.4-10.2) mg/dL Total Bilirubin 0.6 (0.2-1.3) mg/dL AST 21 (14-36) U/L ALT 24 (4-34) U/L Alkaline Phosphatase 87 (38-126) U/L Total Protein 7.9 (6.3-8.2) g/dL Albumin 4.7 (3.5-5.0) g/dL Urine Color Urine Appearance (Clear) Urine pH (5.0-8.0) Ur Specific [place] (1.001-1.035) Urine Protein (Negative) Urine Glucose (UA) (Negative) Urine Ketones (Negative) Urine Blood (Negative) Urine Nitrite (Negative) Urine Bilirubin (Negative) Urine Urobilinogen (<2.0) mg/dL Ur Leukocyte Esterase (Negative) Urine WBC (0-5) /hpf Urine WBC Clumps (None) /hpf Ur Squamous Epith Cells (0-4) /hpf Urine Bacteria (None) /hpf Urine HCG, Qual (Not Detectd) Salicylates <1.0 mg/dL Urine Opiates Screen (NotDetected) Ur Oxycodone Screen (NotDetected) Urine Methadone Screen (NotDetected) Ur Propoxyphene Screen (NotDetected) Acetaminophen <10.0 ug/mL Ur Barbiturates Screen (NotDetected) U Tricyclic Antidepress (NotDetected) Ur Phencyclidine Scrn (NotDetected) Ur Amphetamines Screen (NotDetected) U Methamphetamines Scrn (NotDetected) U Benzodiazepines Scrn (NotDetected) Urine Cocaine Screen (NotDetected) U Marijuana (THC) Screen (NotDetected) Serum Alcohol 122 mg/dL Coronavirus (PCR) Not Detected (Not Detectd) Disposition Clinical Impression: Major depression, recurrent, Suicidal ideation Disposition: TRANSFER TO PSYCH HOSP/UNIT Condition: Stable
--- NOTE | 2022-10-17 16:19 | XR ---
EXAMINATION TYPE: XR pelvis AP view DATE OF EXAM: 10/17/2022 4:14 PM INDICATION: Patient age:Female; 37 years old; Reason for study: Foreign body suspected; [facility]. COMPARISON: None TECHNIQUE: The pelvis was examined in a single projection. FINDINGS: There is no evidence of fracture or dislocation. There is no soft tissue abnormality. Righ t pelvic phlebolith. Bilateral tubal ligation clips. No unexpected radiopaque foreign bodies. IMPRESSION: 1. No acute osseous pathology. 2. Bilateral tubal ligation clips with no unexpected radiopaque foreign bodies.
[2022-10-17 17:12] VITALS: RESP 16
[2022-10-17] MEDS: SERTRALINE 50 MG TAB PO SCH (17:25)
[2022-10-17] MEDS: LEVOTHYROXINE 25 MCG TAB PO SCH (17:25)
[2022-10-17] MEDS: LURASIDONE 40 MG TAB PO SCH (20:32)
[2022-10-17] MEDS: QUEtiapine 25 MG TAB PO PRN (21:01)
[2022-10-18] MEDS ORDERED: LEVOTHYROXINE 25 MCG TAB PO SCH (06:30)
[2022-10-18] MEDS: LEVOTHYROXINE 25 MCG TAB PO SCH (06:34)
[2022-10-18] MEDS ORDERED: LURASIDONE 40 MG TAB PO SCH (09:00)
[2022-10-18] MEDS: SERTRALINE 50 MG TAB PO SCH (09:23)
[2022-10-18] MEDS: NICOTINE 14MG/24HR PATCH TRANSDERM SCH (09:23)
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
[2022-10-18] MEDS: hydrOXYzine pamoate 25 MG CAP PO PRN (14:47)
[2022-10-18] MEDS: QUEtiapine 25 MG TAB PO PRN (18:20)
[2022-10-18 20:48] LABS: Chol/HDL Ratio 8.04 Ratio; LDL Cholesterol,Calculated 235.6 mg/dL (0.0-131.0)
[2022-10-18] MEDS: LURASIDONE 40 MG TAB PO SCH (21:18)
[2022-10-18] MEDS: QUEtiapine 50 MG TAB PO PRN (21:18)
--- NOTE | 2022-10-18 23:34 | CONS ---
CONSULTATION CHIEF COMPLAINT: Major depression. HISTORY OF PRESENT ILLNESS: This lady came in when she became extremely depressed and started cutting her right arm. She will discuss the event surrounding this. REVIEW OF SYSTEMS: Otherwise unremarkable. Past medical history, family history and personal and social histories are unremarkable and noncontributory otherwise. She was just in the office recently and got refills on Klonopin, hydroxyzine, levothyroxine, Zoloft, hydrochlorothiazide, and Latuda. ALLERGIES: She is allergic to Atarax, BuSpar, Wellbutrin, and penicillin. PHYSICAL EXAMINATION: VITAL SIGNS: Normal. HEAD, EARS, EYES, NOSE, MOUTH AND THROAT: Normal. CHEST: Clear. CARDIAC: Normal. ABDOMEN: Soft, nontender. IMPRESSION: Major depression with superficial lacerations of the right forearm. RECOMMENDATIONS: None at this time. MMODL / IJN: [id number] /
[2022-10-19] MEDS: LEVOTHYROXINE 25 MCG TAB PO SCH (06:39)
[2022-10-19] MEDS: hydrOXYzine pamoate 25 MG CAP PO PRN (08:36)
[2022-10-19] MEDS: NICOTINE 14MG/24HR PATCH TRANSDERM SCH (08:37)
[2022-10-19] MEDS ORDERED: SERTRALINE 25 MG TAB PO SCH (09:00)
[2022-10-19] MEDS ORDERED: SERTRALINE 25 MG TAB PO STA (09:57)
--- NOTE | 2022-10-19 11:23 | P.PN ---
Progress Note - Text Progress Note Date: 10/19/22 Interval History: Patient was seen attending group and was directable and agreeable to speak with check writer salesperson in the office. Currently, the patient reports that she is feeling significantly better today. She reports that she was able to speak with her family and have been working on communication. She is not reporting any suicidal or homicidal ideation, intention, and/or plan. She is not reporting any auditory or visual hallucinations... At this time patient denies any suic idal or homical ideations, intent or plan. Patient denies any auditory, visual hallucinations and denies any paranoia or delusions. Patient denies any side effects from the medications and has been compliant with meds. Mental Status Exam: General Appearance: Patient appears to be stated age is alert, directable, and cooperative. Behavior: Patient is calmly seated without any agitated behavior. Speech: Patient's speech is fluent and nonpressured. Mood/Affect: Mood is improving mildly, affect is congruent and constricted. Suicidality/Homicidality: Patient denies having any suicidal or homicidal ideation intent or plan. Perceptions: Patient denies any visual hallucinations and denies any auditory hallucinations Though content/process: There is no evidence of any delusional thought content and thought process is linear and goal-directed. Memory and concentration: AOX3, grossly intact for the purposes of this session Judgment and insight: Improving mildly Vital Signs Temp 98.3 F 10/19/22 06:44 Pulse 73 10/19/22 06:44 Resp 16 10/19/22 06:44 BP 96/60 10/19/22 06:44 Pulse Ox 95 10/19/22 06:44 FiO2 Laboratory Results - Last 24 Hours 10/17/22 10/17/22 03:24 03:[address] Glu mg/dL 140 Hemoglobin A1c 6.5 H Triglycerides 201.00 H Cholesterol 315.00 H LDL Cholesterol, Calc 235.6 H VLDL Cholesterol, Calc 40.20 H HDL Cholesterol 39.20 L Cholesterol/HDL Ratio 8.04 Assessment Major depressive disorder, recurrent, severe Cluster B personality traits PTSD Nicotine dependence Plan: -Patient continues to meet criteria for inpatient psychiatric admission for symptom stabilization and safety. Patient has signed adult voluntary form and me dication consent and was placed in patient's chart. -Medications: Increase Zoloft to 100 mg by mouth daily for depression/anxiety. We will increase to 150 mg tomorrow Continue Seroquel 50 mg by mouth at bedtime when necessary for insomnia Continue Latuda 40 mg at bedtime for mood augmentation. -When necessary Vistaril for agitation/aggression. -NRT - nicotine patch -SW on board for discharge planning. Encouraged the patient to participate in milieu.
[2022-10-19] MEDS: QUEtiapine 50 MG TAB PO PRN (19:57)
[2022-10-19] MEDS: LURASIDONE 40 MG TAB PO SCH (19:57)
[2022-10-20] MEDS: LEVOTHYROXINE 25 MCG TAB PO SCH (06:36)
[2022-10-20 08:29] VITALS: BP 113/76; PULSE 83; TEMP 97.3
[2022-10-20] MEDS: NICOTINE 14MG/24HR PATCH TRANSDERM SCH (08:30)
[2022-10-20] MEDS ORDERED: SERTRALINE 50 MG TAB PO SCH (09:00)
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
== END 2022-10-20 14:43 | disposition home or self-care (01) | DRG 751 ==
LOC: EC 02:03 → 3MHU 15:37
PROVIDERS: ADMIT Psychiatry & Neurology Psychiatry; ATTEND Psychiatry & Neurology Psychiatry
DX: F33.2 Major depressive disorder, recurrent severe without psychotic features (principal); F17.210 Nicotine dependence, cigarettes, uncomplicated; Z71.6 Tobacco abuse counseling; Z71.41 Alcohol abuse counseling and surveillance of alcoholic; Z71.51 Drug abuse counseling and surveillance of drug abuser; Z71.89 Other specified counseling; F60.89 Other specific personality disorders; F43.10 Post-traumatic stress disorder, unspecified; S61.511A Laceration without foreign body of right wrist, initial encounter; S61.512A Laceration without foreign body of left wrist, initial encounter; E07.9 Disorder of thyroid, unspecified; X78.9XXA Intentional self-harm by unspecified sharp object, initial encounter; T42.4X2A Poisoning by benzodiazepines, intentional self-harm, initial encounter; Z62.810 Personal history of physical and sexual abuse in childhood; Z79.890 Hormone replacement therapy; Z79.899 Other long term (current) drug therapy; Z86.32 Personal history of gestational diabetes; Z91.410 Personal history of adult physical and sexual abuse; Z81.1 Family history of alcohol abuse and dependence; Z81.8 Family history of other mental and behavioral disorders; Z28.310 Unvaccinated for COVID-19; Z28.21 Immunization not carried out because of patient refusal; Z20.822 Contact with and (suspected) exposure to COVID-19; Z88.5 Allergy status to narcotic agent; Z88.0 Allergy status to penicillin
CPT/HCPCS: 36415; 72170; 80053; 80061; 80143; 80179; 80306; 80320; 81001; 81025; 82075; 83036; 84443; 85025; 87635; 93005; 96361; 96372; 96374; 99285

== ENCOUNTER 2023-06-11 13:25 | Observation (INO) | payer OTHER ==
--- NOTE | 2023-06-11 14:08 | ED ---
Abdominal Pain HPI - General Chief Complaint: Abdominal Pain Stated Complaint: bleeding ulcer Time Seen by Provider: 06/11/23 13:39 Source: patient, RN notes reviewed Mode of arrival: ambulatory Limitations: no limitations - History of Present Illness Initial Comments: This is a 37-year-old female who presents to the emergency department for abdominal pain. States that this started about 2 weeks ago. It is currently in the upper abdomen, however she feels like it tends to change positions and is sometimes in the lower abdomen. Denies any nausea. States that she always has very irregular bowel movements and noticed some dark stools as well as bright red blood in her stool. She initially attributed her abdominal pain to starting a new job, but became concerned when it was not getting any better. MD Complaint: abdominal pain - Related Data Home Medications Medication Instructions Recorded Confirmed Levothyroxine Sodium 25 mcg PO DAILY 04/08/22 06/11/23 Cyclobenzaprine [Flexeril] 10 mg PO TID PRN 06/11/23 06/11/23 Omeprazole 20 mg PO DAILY 06/11/23 06/11/23 hydrOXYzine HCL [Atarax] 50 mg PO BID PRN 06/11/23 06/11/23 Allergies Allergy/AdvReac Type Severity Reaction Status Date / Time amoxicillin [Amoxicillin] Allergy Swelling Verified 06/11/23 20:57 codeine Allergy Rash/Hives, Verified 06/11/23 21:00 migraine Penicillins Allergy Anaphylaxis Verified 06/11/23 20:57 Review of Systems ROS Statement: Those systems with pertinent positive or pertinent negative responses have been documented in the HPI. ROS Other: All systems not noted in ROS Statement are negative. Past Medical History Past Medical History: No Reported History, Thyroid Disorder Additional Past Medical History / Comment(s): GESTATIONAL DIABETeS, History of Any Multi-Drug Resistant Organisms: None Reported Past Surgical History: No Surgical Hx Reported Additional Past Surgical History / Comment(s): BMT CHILD Past Anesthesia/Blood Transfusion Reactions: No Reported Reaction Past Psychological History: Anxiety, Depression Smoking Status: Current every day smoker Past Alcohol Use History: None Reported Past Drug Use History: Marijuana - Past Family History Father Family Medical History: Cancer Mother Family Medical History: Cancer General Exam Limitations: no limitations General appearance: alert, in distress Head exam: Present: atraumatic, normocephalic, normal inspection Respiratory exam: Present: normal lung sounds bilaterally. Absent: respiratory distress, wheezes, rales, rhonchi, stridor Cardiovascular Exam: Present: regular rate, normal rhythm, normal heart sounds. Absent: systolic murmur, diastolic murmur, rubs, gallop, clicks GI/Abdominal exam: Present: soft, tenderness (Upper abdomen), normal bowel sounds. Absent: distended Neurological exam: Present: alert, oriented X3, CN II-XII intact Psychiatric exam: Present: normal affect, normal mood Skin exam: Present: warm, dry, intact, normal color. Absent: rash Course Vital Signs 06/11/23 06/11/23 06/11/23 13:29 16:15 16:50 Temperature 99.1 F 98.9 F Pulse Rate 101 H 71 Respiratory 20 18 Rate Blood Pressure 133/101 136/88 O2 Sat by Pulse 100 100 Oximetry 06/11/23 19:13 Temperature Pulse Rate 68 Respiratory 18 Rate Blood Pressure 137/84 O2 Sat by Pulse 100 Oximetry Medical Decision Making - Medical Decision Making This is a 37-year-old female who presents to the emergency department for abdominal pain. Was pt. sent in by a medical professional or institution? @ -No Did you speak to anyone other than the patient for history? @ -No Did you review nursing and triage notes? @ -Yes, and I agree, it is accurate with regards to the patient's symptoms. Were old charts reviewed? @ -No Differential Diagnosis? @ -Differential Abdominal Pain Women: Appendicitis, Cholecystitis, diverticulosis, ischemic bowel, pancreatitis, hepatitis, UTI, gastroenteritis, AAA, incarcerated hernia, bowel obstruction, constipation, inflammatory bowel, hepatitis, peptic ulcer disease, splenic infarction, perforated viscus, vulvitis, ovarian torsion, PID, kidney stone, placenta abruption, this is not meant to be an all-inclusive list EKG interpreted by me (3pts min.)? @ -Not obtained X-rays interpreted by me (1pt min.)? @ -Not obtained CT interpreted by me (1pt min.)? @ -CT scan of the abdomen and pelvis obtained. My interpretation identifies no evidence of bowel wall thickening or free air. U/S interpreted by me (1pt. min.)? @ -Gallbladder US obtained. My interpretation identifies no evidence of cholelithiasis. What testing was considered but not performed? (CT, X-rays, U/S, labs)? Why? @ -None What meds were considered but not given? Why? @ -None Did you discuss the management of the patient with other professionals? @ -Yes, Dr. Schmid, who accepts the patient for admission. Did you reconcile home meds? @ -Yes Was smoking cessation discussed for >3mins.? @ -No Was critical care preformed (if so, how long)? @ -No Were there social determinants of health that impacted care today? How? (Homelessness, low income, unemployed, alcoholism, drug addiction, transportation, low edu. Level, literacy, decrease access to med. care, alf, rehab)? @ -No Was there de-escalation of care discussed even if they declined? (Discuss DNR or withdrawal of care, Hospice)? @ -No What co-morbidities impacted this encounter? (DM, HTN, Smoking, COPD, CAD, Cancer, CVA, Hep., AIDS, mental health diagnosis, sleep apnea, morbid obesity)? @ -None Was patient admitted / discharged? @ -Admitted. Lab work demonstrates mild leukocytosis with a white blood cell count of 12.2. Potassium elevated at 5.6, however this was hemolyzed. Repeat potassium was 4.1. Urinalysis negative for signs of infection. CT scan of the abdomen and pelvis demonstrates possible mild nonspecific colitis. She was also said to have borderline prominent CBD, and they advised correlation with LFTs. LFTs were within normal limits. However, based on this finding and given that her pain is currently more so in the epigastric region, gallbladder US was obtained. This identified no evidence of cholelithiasis and CBD was not found to be dilated. However, she did reportedly have a positive sonographic Tolbert sign. The cause of the patient's pain is not entirely clear at this point. She has required multiple doses of pain medication without relief in symptoms. Patient admitted to medicine for intractable abdominal pain. Consult placed for general surgery for further evaluation. Undiagnosed new problem with uncertain prognosis? @ -None Drug Therapy requiring intensive monitoring for toxicity (Heparin, Nitro, Insulin, Cardizem)? @ -None Were any procedures done? @ -None Diagnosis/symptom? @ -Intractable abdominal pain, positive tolbert's sign Acute, or Chronic, or Acute on Chronic? @ -Acute Uncomplicated (without systemic symptoms) or Complicated (systemic symptoms)? @ -Uncomplicated Side effects of treatment? @ -None Exacerbation, Progression, or Severe Exacerbation] @ -Not applicable Poses a threat to life or bodily function? @ -Yes This case was discussed in detail with the attending ED physician, Dr. Gracia. Presentation, findings, and treatment plan discussed in detail as well. - Lab Data Result diagrams: 06/11/23 14:15 06/11/23 17:16 Lab Results 06/11/23 06/11/23 06/11/23 Range/Units 14:15 14:15 14:15 WBC 12.2 H (3.8-10.6) k/uL RBC 4.63 (3.80-5.40) m/uL Hgb 14.5 (11.4-16.0) gm/dL Hct 44.8 (34.0-46.0) % MCV 96.9 (80.0-100.0) fL MCH 31.4 (25.0-35.0) pg MCHC 32.4 (31.0-37.0) g/dL RDW 12.0 (11.5-15.5) % Plt Count 400 (150-450) k/uL MPV 8.0 Neutrophils % 75 % Lymphocytes % 18 % Monocytes % 3 % Eosinophils % 1 % Basophils % 1 % Neutrophils # 9.1 H (1.3-7.7) k/uL Lymphocytes # 2.2 (1.0-4.8) k/uL Monocytes # 0.4 (0-1.0) k/uL Eosinophils # 0.2 (0-0.7) k/uL Basophils # 0.1 (0-0.2) k/uL Sodium 138 (137-145) mmol/L Potassium 5.6 H (3.5-5.1) mmol/L Chloride 107 (98-107) mmol/L Carbon Dioxide 21 L (22-30) mmol/L Anion Gap 10 mmol/L BUN 13 (7-17) mg/dL Creatinine 0.48 L (0.52-1.04) mg/dL Est GFR (CKD-EPI)AfAm >90 (>60 ml/min/1.73 sqM) Est GFR (CKD-EPI)NonAf >90 (>60 ml/min/1.73 sqM) Glucose 128 H (74-99) mg/dL Plasma Lactic Acid Sukhwinder 1.1 (0.7-2.0) mmol/L Calcium 10.1 (8.4-10.2) mg/dL Total Bilirubin 0.8 (0.2-1.3) mg/dL AST 33 (14-36) U/L ALT 16 (4-34) U/L Alkaline Phosphatase 64 (38-126) U/L Total Protein 8.4 H (6.3-8.2) g/dL Albumin 5.0 (3.5-5.0) g/dL Amylase 49 (30-110) U/L Lipase 29 (23-300) U/L HCG, Qual Not Detected Urine Color Urine Appearance (Clear) Urine pH (5.0-8.0) Ur Specific [place] (1.001-1.035) Urine Protein (Negative) Urine Glucose (UA) (Negative) Urine Ketones (Negative) Urine Blood (Negative) Urine Nitrite (Negative) Urine Bilirubin (Negative) Urine Urobilinogen (<2.0) mg/dL Ur Leukocyte Esterase (Negative) Urine RBC (0-5) /hpf Urine WBC (0-5) /hpf Ur Squamous Epith Cells (0-4) /hpf 06/11/23 06/11/23 Range/Units 14:15 17:16 WBC (3.8-10.6) k/uL RBC (3.80-5.40) m/uL Hgb (11.4-16.0) gm/dL Hct (34.0-46.0) % MCV (80.0-100.0) fL MCH (25.0-35.0) pg MCHC (31.0-37.0) g/dL RDW (11.5-15.5) % Plt Count (150-450) k/uL MPV Neutrophils % % Lymphocytes % % Monocytes % % Eosinophils % % Basophils % % Neutrophils # (1.3-7.7) k/uL Lymphocytes # (1.0-4.8) k/uL Monocytes # (0-1.0) k/uL Eosinophils # (0-0.7) k/uL Basophils # (0-0.2) k/uL Sodium (137-145) mmol/L Potassium 4.1 (3.5-5.1) mmol/L Chloride (98-107) mmol/L Carbon Dioxide (22-30) mmol/L Anion Gap mmol/L BUN (7-17) mg/dL Creatinine (0.52-1.04) mg/dL Est GFR (CKD-EPI)AfAm (>60 ml/min/1.73 sqM) Est GFR (CKD-EPI)NonAf (>60 ml/min/1.73 sqM) Glucose (74-99) mg/dL Plasma Lactic Acid Sukhwinder (0.7-2.0) mmol/L Calcium (8.4-10.2) mg/dL Total Bilirubin (0.2-1.3) mg/dL AST (14-36) U/L ALT (4-34) U/L Alkaline Phosphatase (38-126) U/L Total Protein (6.3-8.2) g/dL Albumin (3.5-5.0) g/dL Amylase (30-110) U/L Lipase (23-300) U/L HCG, Qual Urine Color Colorless Urine Appearance Cloudy H (Clear) Urine pH 5.5 (5.0-8.0) Ur Specific [place] 1.010 (1.001-1.035) Urine Protein Negative (Negative) Urine Glucose (UA) Negative (Negative) Urine Ketones Negative (Negative) Urine Blood Trace H (Negative) Urine Nitrite Negative (Negative) Urine Bilirubin Negative (Negative) Urine Urobilinogen <2.0 (<2.0) mg/dL Ur Leukocyte Esterase Small H (Negative) Urine RBC 1 (0-5) /hpf Urine WBC 5 (0-5) /hpf Ur Squamous Epith Cells 13 H (0-4) /hpf - Radiology Data Radiology results: report reviewed, image reviewed Disposition Clinical Impression: Intractable abdominal pain, Positive Tolbert's Sign Disposition: ADMITTED IP TO THIS [facility] Time of Disposition: 18:58
[2023-06-11] MEDS: SODIUM CHLORIDE 0.9% 1,000 ML IV STA (14:27)
[2023-06-11] MEDS: FAMOTIDINE 20 MG/2 ML VIAL IV STA (14:27)
[2023-06-11] MEDS: HYDROmorphone 0.5 MG/0.5 ML SYRINGE IVP STA ×2 (14:31→16:40)
[2023-06-11 14:42] LABS: Basophils # (A) 0.1 k/uL (0-0.2); Basophils % (A) 1 %; Eosinophils # (A) 0.2 k/uL (0-0.7); Eosinophils % (A) 1 %; HCT 44.8 % (34.0-46.0); HGB 14.5 gm/dL (11.4-16.0); Lymphocytes # (A) 2.2 k/uL (1.0-4.8); Lymphocytes % (A) 18 %; MCH 31.4 pg (25.0-35.0); MCHC 32.4 g/dL (31.0-37.0); MCV 96.9 fL (80.0-100.0); Monocytes # (A) 0.4 k/uL (0-1.0); Monocytes % (A) 3 %; Neutrophils # (A) 9.1 k/uL (1.3-7.7); Neutrophils % (A) 75 %; Platelet Count 400 k/uL (150-450); RBC 4.63 m/uL (3.80-5.40); WBC 12.2 k/uL (3.8-10.6)
[2023-06-11 14:54] LABS: Appearance,Urine Cloudy (Clear); Bilirubin,Urine Negative (Negative); Blood,Urine Trace (Negative); Color,Urine Colorless; Glucose,Urine (UA) Negative (Negative); Ketones,Urine Negative (Negative); Leukocyte Esterase,Urine Small (Negative); Nitrite,Urine Negative (Negative); PH, Urine 5.5 (5.0-8.0); Protein,Urine Negative (Negative); RBC,Urine 1 /hpf (0-5); Squamous Epithelial Cell,Urine 13 /hpf (0-4); Urobilinogen,Urine <2.0 mg/dL (<2.0); WBC,Urine 5 /hpf (0-5)
[2023-06-11 14:59] LABS: ALT 16 U/L (4-34); African American GFR (CKD) >90 (>60 ml/min/1.73 sqM); Amylase 49 U/L (30-110); Anion Gap 10 mmol/L; Blood Urea Nitrogen 13 mg/dL (7-17); Calcium 10.1 mg/dL (8.4-10.2); Carbon Dioxide 21 mmol/L (22-30); Chloride 107 mmol/L (98-107); Glucose 128 mg/dL (74-99); Lipase 29 U/L (23-300); Non-African American GFR(CKD) >90 (>60 ml/min/1.73 sqM); Sodium 138 mmol/L (137-145); Total Bilirubin 0.8 mg/dL (0.2-1.3); Total Protein 8.4 g/dL (6.3-8.2)
[2023-06-11 15:00] LABS: HCG,Qualitative Serum Not Detected
[2023-06-11 15:11] LABS: AST 33 U/L (14-36); Alkaline Phosphatase 64 U/L (38-126); Potassium 5.6 mmol/L (3.5-5.1)
--- NOTE | 2023-06-11 16:43 | CT ---
EXAMINATION TYPE: CT abdomen pelvis w con CT DLP: 748.3 mGycm, Automated exposure control for dose reduction was used. DATE OF EXAM: 06/11/2023 3:20 PM COMPARISON: None. CLINICAL INDICATION:Female, 37 years old with history of Abdominal pain, acute, nonlocalized; Abdomin al pain, dark tarry stool with some bright red, patient states she hasnt had a normal bowel movement in around a month. TECHNIQUE: Axial CT of the abdomen and pelvis. Sagittal and coronal reformats were created on a [employer] workstation. Contrast used:100 mL of Isovue 300 with IV Contrast, (none if empty) Oral contrast used: without Oral Contrast (none if empty) FINDINGS: LOWER CHEST: Unremarkable ABDOMEN LIVER: Appears enlarged with the right lobe 17.7 cm, otherwise no significant abnormality. GALLBLADDER AND BILE DUCTS: Unremarkable gallbladder. CBD is borderline mildly prominent at approxima tely 7 mm at most, and appears to taper distally. PANCREAS: Unremarkable. SPLEEN: Unremarkable. ADRENAL GLANDS: Unremarkable. KIDNEYS AND URETERS: Kidneys enhance symmetrically. No evidence of hydronephrosis or visible renal ca lculus. The ureters are unremarkable. Tiny cyst in the left lower pole. PELVIS BLADDER: Unremarkable REPRODUCTIVE: Central uterine hypoattenuation, not unusual in a menstrual age patient. There are bila teral tubal ligation clips. Follicular ovarian change suggested. ABDOMEN & PELVIS STOMACH AND BOWEL: Stomach and small bowel are nondistended, no evidence of obstruction. Some fecal ization of distal small bowel can be seen with slow transit. The appendix appears within normal limi ts, image 55. Moderate stool in the colon, especially proximally. No discrete focal inflammation see n involving the colon. There is however questionably mild pericolonic stranding especially in the becky cending region, and a mild nonspecific colitis cannot be excluded. PERITONEUM/RETROPERITONEUM: No evidence of pneumoperitoneum or free fluid. VASCULATURE: Mild to moderate atherosclerotic calcifications are present throughout the abdominal aor ta and its branches. No significant branch narrowing in the abdomen. No evidence of aortic aneurysm. Mild narrowing of the right more than left common iliac. Portal veins and splenic vein are enhancin g. Renal veins are patent. IVC is of normal caliber. LYMPH NODES: No enlarged nodes by CT criteria. SOFT TISSUE/ABDOMINAL WALL: There is some broad-based dehiscence between the anterior abdominal wall musculature with some outward protrusion of mesenteric fat and portions of bowel without evidence of obstructive change. There is a small superimposed fat-containing umbilical hernia. MUSCULOSKELETAL: No acute osseous abnormalities. IMPRESSION: 1. There is possibly mild nonspecific colitis. Otherwise, no clear evidence of acute abnormality to explain the patient's symptoms. 2. Mild hepatomegaly. 3. Borderline prominent CBD, this could be correlated clinically with LFTs. 4. Other chronic and likely incidental findings, as described above.
--- NOTE | 2023-06-11 18:41 | US ---
EXAMINATION TYPE: US gallbladder DATE OF EXAM: 06/11/2023 COMPARISON: CT earlier today, US 2016 CLINICAL INDICATION: Female, 37 years old with history of Epigastric pain; TECHNIQUE: Multiple sonographic images of the right upper quadrant are obtained. FINDINGS: EXAM MEASUREMENTS: Liver Length: 17.8cm Gallbladder Wall: 0.2cm CBD: 0.5cm Right Kidney: 10.6 x 4.4 x 6.0cm Pancreas: visualized portions wnl, limited by overlying midline bowel gas Liver: Mildly enlarged, mildly coarsened and somewhat echogenic parenchyma with relatively more echo genic area measuring 2.9 x 1.3 x 3.2cm seen towards the central liver. Gallbladder: wnl Evidence for sonographic Tolbert's sign: yes CBD: wnl Right Kidney: wnl IMPRESSION: 1. Sonographically unremarkable gallbladder, however the technical business analyst reports a positive sonographic Tolbert's sign. Please correlate and follow clinically. 2. Mild hepatomegaly. Liver findings suggest mild hepatic steatosis, with likely focal fat towards t he central liver. 3. No significant biliary ductal dilatation.
[2023-06-11] MEDS ORDERED: NALOXONE 0.4 MG/ML 1 ML VIAL IV PRN (18:59)
[2023-06-11] MEDS ORDERED: ACETAMINOPHEN TAB 325 MG TAB PO PRN (18:59)
[2023-06-11] MEDS: MAG HYDROX/AL HYDROX/SIMETH 30 ML, HYOSCYAMINE ELIXIR 10 ML, LIDOCAINE VISCOUS 2% 10 ML PO STA (19:14)
[2023-06-11] MEDS: PANTOPRAZOLE 40 MG/10 ML VIAL IVP STA (19:17)
[2023-06-11] MEDS: SODIUM CHLORIDE 0.9% 1,000 ML IV SCH (19:20)
[2023-06-11] MEDS: HYDROmorphone 1 MG/ML 1 ML SYRINGE IVP STA (19:23)
[2023-06-11] MEDS: HYDROcodone/APAP 5-325MG 1 EACH TAB PO PRN (22:33)
[2023-06-12] MEDS: HYDROmorphone 1 MG/ML 1 ML SYRINGE IVP PRN (03:49)
[2023-06-12] MEDS ORDERED: hydrOXYzine HCL 25 MG TAB PO PRN (07:05)
[2023-06-12] MEDS ORDERED: CYCLOBENZAPRINE 10 MG TAB PO PRN (07:05)
[2023-06-12] MEDS: LEVOTHYROXINE 25 MCG TAB PO SCH (08:34)
[2023-06-12] MEDS: PANTOPRAZOLE 40 MG TABLET PO SCH (08:34)
[2023-06-12] MEDS ORDERED: LEVOTHYROXINE 25 MCG TAB PO SCH (09:00)
[2023-06-12] MEDS ORDERED: PANTOPRAZOLE 40 MG/10 ML VIAL IV SCH (09:00)
--- NOTE | 2023-06-12 14:33 | P.GSCN ---
History of Present Illness Consult date: 06/12/23 History of present illness: Patient and family at bedside. Family also reports abdominal pain epigastric including right upper quadrant longstanding for several months. Patient has intolerance to fatty greasy foods. "Eat fatty greasy foods and my belly hurts." Strong family history of gallbladder disorder and aunts including mother. She reports multiple gallbladder scans. No HIDA scan performed. Patient reports change in bowel habits after eating fatty foods as well. Recommend HIDA scan. Patient reports severe uncontrolled reflux disease. Also benefit from upper endoscopy. Possible cholecystectomy pending results of HIDA scan tomorrow. In the interim, low-fat diet. Past Medical History Past Medical History: No Reported History, Thyroid Disorder Additional Past Medical History / Comment(s): GESTATIONAL DIABETeS, History of Any Multi-Drug Resistant Organisms: None Reported Past Surgical History: No Surgical Hx Reported Additional Past Surgical History / Comment(s): BMT CHILD Past Anesthesia/Blood Transfusion Reactions: No Reported Reaction Past Psychological History: Anxiety, Depression Smoking Status: Current every day smoker Past Alcohol Use History: None Reported Past Drug Use History: Marijuana - Past Family History Father Family Medical History: Cancer Mother Family Medical History: Cancer Medications and Allergies Home Medications Medication Instructions Recorded Confirmed Type Levothyroxine Sodium 25 mcg PO DAILY 04/08/22 06/11/23 History Cyclobenzaprine [Flexeril] 10 mg PO TID PRN 06/11/23 06/11/23 History Omeprazole 20 mg PO DAILY 06/11/23 06/11/23 History hydrOXYzine HCL [Atarax] 50 mg PO BID PRN 06/11/23 06/11/23 History Sertraline [Zoloft] 100 mg PO DAILY 06/12/23 06/12/23 History Allergies Allergy/AdvReac Type Severity Reaction Status Date / Time amoxicillin [Amoxicillin] Allergy Swelling Verified 06/11/23 20:57 codeine Allergy Rash/Hives, Verified 06/11/23 21:00 migraine Penicillins Allergy Anaphylaxis Verified 06/11/23 20:57 Surgical - Exam Vital Signs Temp Pulse Resp BP Pulse Ox 99.1 F 101 H 20 133/101 100 06/11/23 13:29 06/11/23 13:29 06/11/23 13:29 06/11/23 13:29 06/11/23 13:29 Results - Labs 06/11/23 14:15 06/11/23 17:16 Abnormal Lab Results - Last 24 Hours (Table) 06/11/23 06/11/23 06/11/23 Range/Units 14:15 14:15 14:15 WBC 12.2 H (3.8-10.6) k/uL Neutrophils # 9.1 H (1.3-7.7) k/uL Potassium 5.6 H (3.5-5.1) mmol/L Carbon Dioxide 21 L (22-30) mmol/L Creatinine 0.48 L (0.52-1.04) mg/dL Glucose 128 H (74-99) mg/dL Total Protein 8.4 H (6.3-8.2) g/dL Urine Appearance Cloudy H (Clear) Urine Blood Trace H (Negative) Ur Leukocyte Esterase Small H (Negative) Ur Squamous Epith Cells 13 H (0-4) /hpf Diabetes panel 06/11/23 06/11/23 Range/Units 14:15 17:16 Sodium 138 (137-145) mmol/L Potassium 5.6 H 4.1 (3.5-5.1) mmol/L Chloride 107 (98-107) mmol/L Carbon Dioxide 21 L (22-30) mmol/L BUN 13 (7-17) mg/dL Creatinine 0.48 L (0.52-1.04) mg/dL Glucose 128 H (74-99) mg/dL Calcium 10.1 (8.4-10.2) mg/dL AST 33 (14-36) U/L ALT 16 (4-34) U/L Alkaline Phosphatase 64 (38-126) U/L Total Protein 8.4 H (6.3-8.2) g/dL Albumin 5.0 (3.5-5.0) g/dL Calcium panel 06/11/23 Range/Units 14:15 Calcium 10.1 (8.4-10.2) mg/dL Albumin 5.0 (3.5-5.0) g/dL Pituitary panel 06/11/23 06/11/23 Range/Units 14:15 17:16 Sodium 138 (137-145) mmol/L Potassium 5.6 H 4.1 (3.5-5.1) mmol/L Chloride 107 (98-107) mmol/L Carbon Dioxide 21 L (22-30) mmol/L BUN 13 (7-17) mg/dL Creatinine 0.48 L (0.52-1.04) mg/dL Glucose 128 H (74-99) mg/dL Calcium 10.1 (8.4-10.2) mg/dL Adrenal panel 06/11/23 06/11/23 Range/Units 14:15 17:16 Sodium 138 (137-145) mmol/L Potassium 5.6 H 4.1 (3.5-5.1) mmol/L Chloride 107 (98-107) mmol/L Carbon Dioxide 21 L (22-30) mmol/L BUN 13 (7-17) mg/dL Creatinine 0.48 L (0.52-1.04) mg/dL Glucose 128 H (74-99) mg/dL Calcium 10.1 (8.4-10.2) mg/dL Total Bilirubin 0.8 (0.2-1.3) mg/dL AST 33 (14-36) U/L ALT 16 (4-34) U/L Alkaline Phosphatase 64 (38-126) U/L Total Protein 8.4 H (6.3-8.2) g/dL Albumin 5.0 (3.5-5.0) g/dL
[2023-06-12] MEDS: KETOROLAC 15 MG/ML 1 ML VIAL IVP SCH (17:37)
--- NOTE | 2023-06-12 20:45 | HP ---
HISTORY AND PHYSICAL CHIEF COMPLAINT: Abdominal pain. HISTORY OF PRESENT ILLNESS: This is the first known admission for this 37-year-old female, who has been having upper abdominal pain on and off for some time. She apparently came to the emergency room for further evaluation. It was determined that this may be related to gallbladder disease. I am not sure what study she has had as an outpatient such as ultrasound, CAT scan, HIDA scan, etc. REVIEW OF SYSTEMS: She denies any fever or chills. No nausea, vomiting, jaundice, acholic stools, etc. Past medical history, family history, and personal and social histories are all otherwise unremarkable and noncontributory. PHYSICAL EXAMINATION: VITAL SIGNS: Normal. HEAD, EARS, EYES, NOSE, MOUTH AND THROAT: Normal. There is no icterus. CHEST: Clear. CARDIAC: Normal. ABDOMEN: Slightly protuberant. Soft and slightly tender in the epigastrium. There are no masses. EXTREMITIES: Normal. NEUROLOGIC: Intact. IMPRESSION: She is admitted to the hospital with diagnosis of; 1. Abdominal pain. 2. Possible gallbladder disease. PLAN: 1. Bed rest. 2. IV fluids. 3. Surgery consult. MMODL / IJN: [id number] /
--- NOTE | 2023-06-12 21:46 | PN ---
PROGRESS NOTE CHIEF COMPLAINT: Abdominal pain. HISTORY OF PRESENT ILLNESS: This lady is doing fairly well. It looks as though her pain that she has been having for some time may be gallbladder disease and she will be evaluated by Surgery. PHYSICAL EXAMINATION: ABDOMEN: She is tender over the epigastrium. There are no masses. CHEST: Clear. CARDIAC: Normal. IMPRESSION: 1. Abdominal pain. 2. Probable gallbladder disease. PLAN: Await Surgery's recommendation. HIDA scan with CCK could be considered if it has not already been done. MMODL / IJN: [id number] /
[2023-06-13 11:27] LABS: Basophils # (A) 0.05 X 10*3/uL (0.00-0.10); Basophils % (A) 0.5 %; Eosinophils # (A) 0.24 X 10*3/uL (0.04-0.35); Eosinophils % (A) 2.5 %; HCT 36.4 % (37.2-46.3); HGB 11.9 g/dL (12.0-15.0); Lymphocytes # (A) 3.68 X 10*3/uL (0.90-5.00); MCHC 32.7 g/dL (32.0-37.0); MCV 94.8 FL (80.0-97.0); Mean Platelet Volume 10.2 FL (9.5-12.2); Monocytes # (A) 0.59 X 10*3/uL (0.20-1.00); Monocytes % (A) 6.1 %; NRBC Per 100 WBC 0 X 10*3/uL (0.00-0.01); Neutrophils # (A) 5.09 X 10*3/uL (1.80-7.70); Neutrophils % (A) 52.6 %; Platelet Count 393 X 10*3/uL (140-440); RBC 3.84 X 10*6/uL (4.10-5.20); RDW 11.9 % (11.5-14.5); WBC 9.68 X 10*3/uL (4.50-10.00)
--- NOTE | 2023-06-13 11:31 | NM ---
Nuclear medicine hepatobiliary scan. HISTORY: Pain. DOSAGE: The patient received about 4.6 mCi of Technetium 99m Choletec. FINDINGS: There is normal hepatic extraction. The gallbladder is seen by 25 minutes. There is bilia ry to bowel clearance not seen at 60 minutes which is a nonspecific finding.. IMPRESSION: 1. No evidence of cholecystitis.
[2023-06-13 11:55] LABS: Blood Urea Nitrogen 8.5 mg/dL (9.0-27.0); Carbon Dioxide 25.4 mmol/L (21.6-31.8); Chloride 104 mmol/L (96-109); Glucose 103 mg/dL (70-110); Potassium 4.5 mmol/L (3.5-5.5); Sodium 139 mmol/L (135-145)
[2023-06-13 11:56] LABS: ALT 13 U/L (8-44); AST 12 U/L (13-35); Albumin 4.4 g/dL (3.8-4.9); Alkaline Phosphatase 76 U/L (41-126); Calcium 9.6 mg/dL (8.7-10.3); Globulin 2.1 g/dL (1.6-3.3); Total Bilirubin 0.2 mg/dL (0.3-1.2); Total Protein 6.5 g/dL (6.2-8.2)
--- NOTE | 2023-06-13 15:11 | P.PN ---
Subjective Progress Note Date: 06/13/23 CHIEF COMPLAINT: Abdominal pain HISTORY OF PRESENT ILLNESS: Patient continues to complain of epigastric a bdominal pain. Patient had HIDA scan with EF completed today. Patient did not complete the test due to increased in pain. Therefore without those results the cholecystectomy was canceled for today. Patient is now willing to complete the HIDA scan. Unfortunately she did receive IV pain medication and that also hinders patient getting the HIDA scan done. Afebrile. WBC 9.68 Hgb 11.9 LFTs are not elevated. PHYSICAL EXAM: VITAL SIGNS: Reviewed GENERAL: Well-developed in no acute distress. HEENT: No sclera icterus. Extraocular movements grossly intact. Moist buccal mucosa. Head is atraumatic, normocephalic. Hears conversational speech. No nasal drainage. NECK: Supple without lymphadenopathy. CHEST: Non-labored respirations and equal bilateral excursions. CARDIOVASCULAR: Palpable 2+ radial pulses. ABDOMEN: Soft. Nondistended. Epigastric tenderness MUSCULOSKELETAL: No clubbing or cyanosis. NEUROLOGIC: No focal or lateralizing signs. Cranial nerves II through XII grossly intact. PSYCH: Appropriate affect. Alert and oriented to person, place and time. SKIN: Well perfused. Good skin turgor. ASSESSMENT: 1. Epigastric and right upper quadrant abdominal pain PLAN: -Patient rescheduled for HIDA scan with EF tomorrow -Start clear liquid diet for today -N.p.o. after midnight for HIDA scan -Cholecystectomy canceled for today Physician Coal Trammer note has been reviewed by physician. Signing provider agrees with the documented findings, assessment, and plan of care. Objective - Vital Signs Vital signs: Vital Signs Temp 98.5 F 06/13/23 11:22 Pulse 98 06/13/23 11:22 Resp 18 06/13/23 11:22 BP 135/97 06/13/23 11:22 Pulse Ox 98 06/13/23 11:22 FiO2 Intake & Output 06/12/23 06/13/23 06/13/23 18:59 06:59 18:59 Intake Total 540 Balance 540 Intake: Intake, IV Titration 300 Amount Sodium Chloride 0.9% 1, 300 000 ml @ 75 mls/hr IV . [id number] BRIANA Rx#:[id number] Oral 240 Other: Voiding Method Toilet Toilet Toilet # Voids 3 3 - Labs CBC & Chem 7: 06/13/23 06:08 06/13/23 06:08 Labs: Abnormal Lab Results - Last 24 Hours (Table) 06/13/23 06/13/23 Range/Units 06:08 06:08 RBC 3.84 L (4.10-5.20) X 10*6/uL Hgb 11.9 L (12.0-15.0) g/dL Hct 36.4 L (37.2-46.3) % BUN 8.5 L (9.0-27.0) mg/dL Creatinine 0.5 L (0.6-1.5) mg/dL Total Bilirubin 0.2 L (0.3-1.2) mg/dL AST 12 L (13-35) U/L
--- NOTE | 2023-06-13 19:51 | PN ---
PROGRESS NOTE DATE OF SERVICE: 06/13/2023 CHIEF COMPLAINT: Gallbladder disease. HISTORY OF PRESENT ILLNESS: This lady is being worked up for gallbladder disease and has a HIDA scan with CCK ordered. She also started to develop very rapid vaginal bleeding, which is at her usual menstrual period time. PHYSICAL EXAMINATION: CHEST: Clear. CARDIAC: Normal. She is a little bit tender over the epigastrium. IMPRESSION: 1. Probable gallbladder disease. 2. Menorrhagia. PLAN: SINGER AND UNLOADER consult while we are waiting for the HIDA scan. MMODL / IJN: [id number] /
[2023-06-14] MEDS: ONDANSETRON 4 MG/2 ML VIAL IVP PRN (02:23)
[2023-06-14 03:32] VITALS: RESP 16
--- NOTE | 2023-06-14 08:59 | NM ---
Nuclear medicine hepatobiliary scan. HISTORY: Pain. COMPARISON: 06/13/2023 DOSAGE: The patient received 8 0z Ensure plus and 4.4 mCi of Technetium 99m Choletec. FINDINGS: There is are normal hepatic extraction. The gallbladder is seen by 20 minutes. There is b iliary to bowel clearance by 20 minutes. Ejection fraction is 76%. Increased uptake is seen on today 's exam along the inferior margin of the liver not seen on the prior exam. No corresponding abnormali ty noted by CT scan. IMPRESSION: 1. No evidence of cholecystitis. 2. Normal ejection fraction. 3. There is increased uptake seen on today's exam along the inferior margin liver which is nonspecifi c. Not seen on yesterday's exam. Recent ultrasound and CT scan demonstrate no fluid collections. Find ing of uncertain etiology.
--- NOTE | 2023-06-14 09:08 | P.OBCN ---
History of Present Illness Consult date: 06/14/23 Reason for consult: menorrhagia, other (Cycle irregularity and dysmenorrhea) Chief complaint: Intractable upper abdominal pain History of present illness: The patient is a 37-year-old 2 para 2-0-0-2 well-known to me having delivered her children. She presented to the hospital as per previous documentation with significant primarily upper abdominal pain and is thought to have ongoing gallbladder disease. Studies to confirm this are pending but it appears likely and possible that she will require cholecystectomy. We will leave that in the hands of the surgical team. I was consulted as the patient reported to her primary care doctor that her cycles have become increasingly irregular and heavy as well as long and painful. She did have a tubal ligation performed last summer with Filshie clips. She currently reports that her cycles are roughly every 28 to 32 days but lasting as long as 9 or 10 days at a time. They are also significantly heavy and crampy. Obstetrical history: 2 para 2-0-0-2 with 2 term vaginal deliveries without complications. Method of contraception is tubal ligation. Gynecologic history: Unremarkable. Review of Systems Review of systems is confined to history of present illness. Past Medical History Past Medical History: No Reported History, Thyroid Disorder Additional Past Medical History / Comment(s): GESTATIONAL DIABETeS, History of Any Multi-Drug Resistant Organisms: None Reported Past Surgical History: No Surgical Hx Reported Additional Past Surgical History / Comment(s): BMT CHILD Past Anesthesia/Blood Transfusion Reactions: No Reported Reaction Past Psychological History: Anxiety, Depression Smoking Status: Current every day smoker Past Alcohol Use History: None Reported Past Drug Use History: Marijuana - Past Family History Father Family Medical History: Cancer Mother Family Medical History: Cancer Medications and Allergies Home Medications Medication Instructions Recorded Confirmed Type Levothyroxine Sodium 25 mcg PO DAILY 04/08/22 06/11/23 History Cyclobenzaprine [Flexeril] 10 mg PO TID PRN 06/11/23 06/11/23 History Omeprazole 20 mg PO DAILY 06/11/23 06/11/23 History hydrOXYzine HCL [Atarax] 50 mg PO BID PRN 06/11/23 06/11/23 History Sertraline [Zoloft] 100 mg PO DAILY 06/12/23 06/12/23 History Allergies Allergy/AdvReac Type Severity Reaction Status Date / Time amoxicillin [Amoxicillin] Allergy Swelling Verified 06/11/23 20:57 codeine Allergy Rash/Hives, Verified 06/11/23 21:00 migraine Penicillins Allergy Anaphylaxis Verified 06/11/23 20:57 Exam Vital Signs Temp Pulse Resp BP Pulse Ox 06/14/23 03:40 97.7 F 06/14/23 03:31 71 16 95/64 96 06/13/23 19:13 98.4 F 70 15 130/87 98 06/13/23 11:22 98.5 F 98 18 135/97 98 Intake and Output 06/13/23 06/14/23 06/14/23 22:59 06:59 14:59 Intake Total 1200 Balance 1200 Intake: Intake, IV Titration 900 Amount Sodium Chloride 0.9% 1, 900 000 ml @ 75 mls/hr IV . [id number] [facility] Rx#:[id number] Oral 300 Other: Voiding Method Toilet # Voids 1 In general, this is a well-developed, well-nourished white female in no acute distress. Her heart has a regular rhythm and rate without murmur. Her lungs are clear to auscultation bilaterally in all segura. Her abdomen has mild general upper abdominal tenderness without any focal masses. Her extremities are without any cyanosis, clubbing, or edema and are nontender to palpation bilaterally. Pelvic examination is deferred to the outpatient follow-up as her problem is not acute. Results Result Diagrams: 06/13/23 06:08 06/13/23 06:08 Abnormal Lab Results - Last 24 Hours (Table) 06/13/23 06/13/23 Range/Units 06:08 06:08 RBC 3.84 L (4.10-5.20) X 10*6/uL Hgb 11.9 L (12.0-15.0) g/dL Hct 36.4 L (37.2-46.3) % BUN 8.5 L (9.0-27.0) mg/dL Creatinine 0.5 L (0.6-1.5) mg/dL Total Bilirubin 0.2 L (0.3-1.2) mg/dL AST 12 L (13-35) U/L Assessment and Plan (1) Menometrorrhagia Current Visit: Yes Status: Acute Code(s): N92.1 - EXCESSIVE AND FREQUENT MENSTRUATION WITH IRREGULAR CYCLE SNOMED Code(s): 278410931 Plan: I have discussed that with the patient that this is a problem that is fairly easily dealt with in the outpatient setting but not one for acute management as an inpatient. I have asked the patient to follow-up with me in the office once she is dispositioned from this particular problem and will leave further management to the medical and surgical teams. Thank you for the consult.
[2023-06-14] MEDS: SERTRALINE 100 MG TAB PO SCH (09:15)
[2023-06-14 09:23] VITALS: BP 122/85; PULSE 70; TEMP 98.4
--- NOTE | 2023-06-15 05:29 | DS ---
DISCHARGE SUMMARY CHIEF COMPLAINT: Right upper quadrant pain. HISTORY OF PRESENT ILLNESS AND PHYSICAL EXAMINATION: Details of this lady's history and physical can be found in the initial workup. LABORATORY STUDIES: While she was in the hospital, she had laboratory studies, details of which can be found in the laboratory section of her chart. COURSE IN THE HOSPITAL: After admission, she was placed on bedrest, started on intravenous fluids and analgesics. She was referred to Surgery. She had not had an abnormal gallbladder study up to this point and a HIDA scan was ordered. This was reported out the next day and was normal. She was requesting increasing frequency and amounts of narcotic analgesics. When she was told that she did not have gallbladder disease and that she could not continue to receive IV Dilaudid, she signed out against medical advice. FINAL DIAGNOSES: 1. Abdominal pain, etiology unknown. 2. Menorrhagia. OPERATIONS: None. CONSULTATIONS: Surgery and Gynecology. MMMINNIE / CORY: [id number] /
== END 2023-06-14 10:29 | disposition left against medical advice (07) ==
LOC: EC 13:25 → 5NMEDONC 20:09
PROVIDERS: ADMIT Family Medicine; ATTEND Family Medicine
DX: R10.11 Right upper quadrant pain (principal); R10.13 Epigastric pain; N92.1 Excessive and frequent menstruation with irregular cycle; F32.A Depression, unspecified; F41.9 Anxiety disorder, unspecified; F17.200 Nicotine dependence, unspecified, uncomplicated; Z79.890 Hormone replacement therapy; Z79.899 Other long term (current) drug therapy; Z88.0 Allergy status to penicillin; Z88.5 Allergy status to narcotic agent; Z53.29 Procedure and treatment not carried out because of patient's decision for other reasons
CPT/HCPCS: 96376 ×4; 96361 ×4; 96375 ×3; 96374; 99285; 36415; 80053 ×2; 82150; 83605; 83690; 84132; 85025 ×2; 81001; 84703; 76705; 74177; 78226; 78227; G0378 ×4; A9537 ×2; J2405; J2805; J3490; J1170 ×5; J1885 ×3; C9113; Q9967

== ENCOUNTER → 2024-02-13 | Outpatient (CLI) | payer OTHER ==
--- NOTE | 2024-02-13 09:28 | USB ---
Reason for Exam: Clinical finding. Patient History: Menarche at age 10. First Full-Term at age 29. Premenopausal. Patient has history of breast feeding. Currently using Hormonal Contraceptives, starting at age 13. Maternal aunt had breast cancer, age 30. Maternal aunt had ovarian cancer, age 52. Risk Values: Taya 5 year model risk: 0.4%. NCI Lifetime model risk: 12.3%. Technique: Method: Targeted. Prior Study Comparison: 01/05/2016 Bilateral Diagnostic Mammogram, [facility]. Findings: The upper outer quadrant of the left breast, the axilla of the left breast and the retroareolar of the left breast were scanned. Targeted ultrasound upper outer quadrant left breast 12:00 to 3:00 including scanning of the subareolar region and axilla. At the 3:00 position, 8 cm from the nipple, there is intramammary lymph node measuring 7 x 5 x 3 mm. Not abnormally thickened or enlarged. Precautionary six-month follow-up recommended Fatty hilum is preserved. Benign axillary lymph node noted. No other solid or cystic lesion. Overall Assessment: Probably benign, BI-RAD 3 Management: Diagnostic Mammogram of the left breast in 6 months. Diagnostic Breast Ultrasound of the left breast in 6 months. Suspicious nipple discharge that would warrant additional workup includes spontaneous clear/bloody discharge localized to single pore on the nipple. This exam should not preclude additional follow-up of suspicious palpable abnormalities. Results were given to the patient verbally at the time of exam. [facility], , 02/13/2024 9:25 AM. Electronically signed and approved by: Em Arguelles M.D. Radiologist
--- NOTE | 2024-02-13 14:32 | MM ---
Reason for Exam: Clinical finding. Last mammogram was performed 8 year(s) and 1 month(s) ago. Indicated Problems: Pain of the left side (Focal) for 6 Month(s). Patient History: Menarche at age 10. First Full-Term at age 29. Premenopausal. Patient has history of breast feeding. Currently using Hormonal Contraceptives, starting at age 13. Maternal aunt had breast cancer, age 30. Maternal aunt had ovarian cancer, age 52. Last menstrual period: 02/05/2024 Risk Values: Taya 5 year model risk: 0.4%. NCI Lifetime model risk: 12.3%. Prior Study Comparison: 01/05/2016 Bilateral Diagnostic Mammogram, [facility]. Tissue Density: The breasts are heterogeneously dense, which may obscure small masses. Findings: Analyzed By CAD. Palpable marker placed along the upper outer quadrant of the left breast. Stable low axillary tail on the right. Benign intramammary lymph node upper-outer aspect of the right breast. No significant mass, suspicious microcalcification, or other discrete abnormality is seen. Overall Assessment: Incomplete: need additional imaging evaluation, BI-RAD 0 Management: Diagnostic Breast Ultrasound of the left breast. [facility], , 02/13/2024 2:29 PM. Electronically signed and approved by: Em Arguelles M.D. Radiologist
== END | disposition home or self-care (01) ==
LOC: RADMAMWWP 07:58
PROVIDERS: ATTEND Family Medicine
DX: R92.333 Mammographic heterogeneous density, bilateral breasts (principal); N64.4 Mastodynia; Z80.41 Family history of malignant neoplasm of ovary; Z80.3 Family history of malignant neoplasm of breast
CPT/HCPCS: 77066; 76642; G0279; 77062